=== PATIENT | female | born 1930 | race Caucasian/White ===

== ENCOUNTER 2020-10-14 14:29 | Observation (INO) | payer MEDICARE, OTHER, MEDICAID ==
[2020-10-14] MEDS ORDERED: Sodium Chloride 0.9% 2.5 ML Syringe FLUSH PRN (14:31)
[2020-10-14] MEDS ORDERED: Sodium Chloride 0.9% 10 ML Syringe FLUSH PRN (14:31)
[2020-10-14] MEDS ORDERED: Sodium Chloride 0.9% 10 ML SDV IV PRN (14:31)
--- NOTE | 2020-10-14 14:58 | EDM.PDOC ---
ED HPI GENERAL MEDICAL PROBLEM - General Chief Complaint: Neuro Symptoms/Deficits Stated Complaint: STROKE CODE Time Seen by Provider: 10/14/20 14:35 - History of Present Illness INITIAL COMMENTS - FREE TEXT/NARRATIVE: HISTORY AND PHYSICAL: History of present illness: This is an 89-year-old female with history significant for hypertension, hypercholesterolemia, dementia, hearing impairment, who presents ER today from [facility] secondary to weakness to her right side as well as slurring of her speech. Patient's DPOA is at bedside and reports that her aunt usually has extremely slurred speech and difficult to understand since childhood. She reports that at baseline she answers yes/no questions fairly well and is able to converse in that manner appropriately. She says at baseline she is able to feed herself and per EMS's report from the nurses, at baseline she is able to get around with a walker and in a wheelchair however according to [facility] nurses, starting Sunday approximately 2 days ago with her last known well. Patient thereafter was noted to have increased weakness to her right side with increased slurring in her speech. Is unclear from the ems report why patient was not sent to the ED sooner and what happened this afternoon that precipitated her coming to the ER today rather than Sunday when the symptoms were identified. Per [facility], patient has had no other complaints of fever, vomiting, diarrhea, urinary changes. Review of systems: As per history of present illness and below otherwise all systems reviewed and negative. Past medical history: As per history of present illness and as reviewed below otherwise noncontributory. Surgical history: As per history of present illness and as reviewed below otherwise noncontributory. Social history: No reported history of drug abuse. Family history: As per history of present illness and as reviewed below otherwise noncontributory. Physical exam: This patient was seen and evaluated during the 2019 SARS-CoV-2 novel coronavirus pandemic period. Community viral transmission is ongoing at time of this encounter and the emergency department is operating under pandemic response procedures. Constitutional: Patient is oriented to person, place, and time. Appears well- developed and well-nourished. No distress. Blood pressure 174/121 upon arrival by EMS HEENT: Moist mucous membranes Head: Normocephalic and atraumatic Eyes: Right eye exhibits no discharge. Left eye exhibits no discharge. No scleral icterus Neck: Normal range of motion. No tracheal deviation present. Cardiovascular: Normal rate and regular rhythm. Pulmonary: Effort normal, no respiratory distress. Abdominal: No distention Musculoskeletal: Normal range of motion Neurologic: Difficult to assess, patient not answering questions appropriately Skin: [place], warm and dry. Psychiatric: Normal mood and affect. Nursing note and vital signs have been reviewed Patient smiles appropriately in the ED when asked to. Patient does have weakness identified to her right upper and right lower extremity. Patient is able to move her left upper and left lower extremity. Difficult to obtain a full complete neuro exam secondary to the patient not following commands appropriately. Diagnostics: CBC and CMP within normal limits. CT of the head reveals no acute bleed or infarct. 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 Therapeutics: Patient's BP has significantly improved without intervention here in the ED. After patient came back from CT scan, her blood pressure was 135/65. Assessment and plan: This is an 89-year-old female with a history significant for hypertension who presents ER today initially with a markedly elevated blood pressure of 174/121 that self corrected on its own without intervention here in the ED. Patient CT scan here does not reveal any acute infarct or bleed. Patient presented to the ER today from [facility] secondary to weakness to her right upper and lower extremity with slurring in her speech since Sunday at approximately 12:01 AM. At this time, patient's niece is at her bedside and she affirms that she is a DNR. She reports that patient speech is usually difficult to understand secondary to baseline slurring her speech for quite some time. When patient returned back from CAT scan, I had the niece give her direction to move her extremities. With the niece's assistance, the patient was able to move her right and left upper and lower extremities without significant difficulty. It is unclear whether or not the patient is now moving her extremities because she is able to understand her needs better than me or whether or not this is a true improvement since the CT scan. According to [facility], the patient generally is able to assist with getting out of her wheelchair and place weight while she pivots to go to her bed. They report that since early Sunday morning, the patient has required to wear a lift in order to move her from her bed to the wheelchair which is new for her. Case discussed with Dr. Mcdermott who agrees with plan to admit to [facility]. Definitive disposition and diagnosis as appropriate pending reevaluation and review of above. - Related Data Allergies Allergy/AdvReac Type Severity Reaction Status Date / Time bee stings Allergy Other Uncoded 05/19/18 15:04 Home Meds: Home Meds Acetaminophen [Tylenol] 325 mg PO Q6H 05/19/18 [History] Bisacodyl [Biscolax] 1 dose RECTAL ASDIRECTED PRN 05/19/18 [History] Calcium Citrate/Vitamin D3 [Calcium Citrate - Vit D3 Tab] 1 cap PO DAILY 02/26 [History] Docusate Sodium [Colace] 1 cap PO BID PRN 05/19/18 [History] Magnesium Hydroxide [Milk of Magnesia] 30 ml PO DAILY 05/19/18 [History] Menthol [Biofreeze] 1 dose TOP DAILY 05/19/18 [History] Multivitamin [Multi-Vitamin Daily] 1 dose PO DAILY 05/19/18 [History] Nystatin 1 dose TOP BID PRN 05/19/18 [History] Simvastatin [Zocor] 40 mg PO BEDTIME 05/19/18 [History] polyethylene glycoL 3350 [MiraLAX] 17 gm PO BID 05/19/18 [History] traMADol HCl [Tramadol HCl] 50 mg PO Q6H PRN 05/19/18 [History] Albuterol/Ipratropium [DuoNeb 3.0-0.5 MG/3 ML] 3 ml NEB Q4HRRT 30 Days #2 box 05/26/18 [Rx] Diltiazem IR [Cardizem] 30 mg PO Q6HR 30 Days #120 tablet 05/26/18 [Rx] Metoprolol Tartrate [Lopressor] 100 mg PO Q12H 30 Days #120 05/26/18 [Rx] predniSONE 40 mg PO WITHBREAKFAST 3 Days #6 tablet 05/26/18 [Rx] Past Medical History HEENT History: Reports: Impaired Vision Respiratory History: Reports: Other (See Below) Other Respiratory History: Pneumonia Musculoskeletal History: Reports: Osteoarthritis Other Musculoskeletal History: left knee pain Other Endocrine/Metabolic History: hyperlipidemia - Infectious Disease History Infectious Disease History: Reports: Chicken Pox - Past Surgical History Other HEENT Surgeries/Procedures: pt wears eye glass Musculoskeletal Surgical History: Reports: Knee Replacement Social & Family History - Family History Family Medical History: No Pertinent Family History ED ROS GENERAL - Review of Systems Review Of Systems: See Below ED EXAM, GENERAL - Physical Exam Exam: See Below Course - Vital Signs Last Recorded V/S: Last Vital Signs Temp 98.3 F 10/14/20 14:35 Pulse 64 10/14/20 14:57 Resp 16 10/14/20 14:57 BP 123/68 10/14/20 14:57 Pulse Ox 98 10/14/20 14:57 - Orders/Labs/Meds Orders: Active Orders 24 hr Category Date Time Status Patient Status [ADT] Routine ADT 10/14/20 16:28 Active Assess Neurological Status [RC] ASDIRECTED Care 10/14/20 14:31 Active Bedrest [RC] ASDIRECTED Care 10/14/20 14:31 Active Blood Glucose Check, Bedside [RC] STAT Care 10/14/20 14:31 Active Cardiac Monitoring [RC] . DIRECTED Care 10/14/20 14:31 Active EKG Documentation Completion [RC] STAT Care 10/14/20 14:31 Active Height and Weight [RC] UPON Care 10/14/20 14:31 Active Initiate Acute Stroke Protocol [RC] STAT Care 10/14/20 14:31 Active NIH Stroke Scale [RC] ASDIRECTED Care 10/14/20 14:31 Active Nursing Bedside Swallow Screen [RC] ASDIRECTED Care 10/14/20 14:31 Active Oxygen Therapy [RC] ASDIRECTED Care 10/14/20 14:31 Active Stroke Education, General [RC] Click to Edit Care 10/14/20 14:31 Active Vital Signs [RC] Q15M Care 10/14/20 14:31 Active CORONAVIRUS COVID-19 ESPERANZA [MOLEC] Stat Lab 10/14/20 16:27 Ordered UA RFX DAVID AND CULT IF INDIC [URIN] Stat Lab 10/14/20 14:31 Ordered Sodium Chloride 0.9% [Normal Saline] Med 10/14/20 14:31 Active 10 ml IV ASDIRECTED PRN Sodium Chloride 0.9% [Saline Flush] Med 10/14/20 14:31 Active 10 ml FLUSH ASDIRECTED PRN Sodium Chloride 0.9% [Saline Flush] Med 10/14/20 14:31 Active 2.5 ml FLUSH ASDIRECTED PRN Peripheral IV Insertion Adult [OM.PC] Stat Oth 10/14/20 14:31 Ordered Peripheral IV Insertion Adult [OM.PC] Stat Ot 10/14/20 14:31 Ordered Medication Orders Sodium Chloride (Sodium Chloride 0.9% 10 Ml Syringe) 10 ml FLUSH ASDIRECTED PRN PRN Reason: Keep Vein Open Sodium Chloride (Sodium Chloride 0.9% 2.5 Ml Syringe) 2.5 ml FLUSH ASDIRECTED PRN PRN Reason: Keep Vein Open Sodium Chloride (Sodium Chloride 0.9% 10 Ml Sdv) 10 ml IV ASDIRECTED PRN PRN Reason: IV Use Labs: Laboratory Tests 10/14/20 10/14/20 10/14/20 Range/Units 14:51 15:44 15:44 WBC 9.58 (4.0-11.0) K/uL RBC 4.91 (4.30-5.90) M/uL Hgb 15.0 (12.0-16.0) g/dL Hct 46.4 H (36.0-46.0) % MCV 94.5 (80.0-98.0) fL MCH 30.5 (27.0-32.0) pg MCHC 32.3 (31.0-37.0) g/dL RDW Std Deviation 44.7 (28.0-62.0) fl RDW Coeff of Shanae 13 (11.0-15.0) % Plt Count 226 (150-400) K/uL MPV 11.70 (7.40-12.00) fL Neut % (Auto) 45.8 L (48.0-80.0) % Lymph % (Auto) 35.7 (16.0-40.0) % [place] % (Auto) 13.8 (0.0-15.0) % Eos % (Auto) 4.5 (0.0-7.0) % Baso % (Auto) 0.2 (0.0-1.5) % Neut # (Auto) 4.4 (1.4-5.7) K/uL Lymph # (Auto) 3.4 H (0.6-2.4) K/uL [place] # (Auto) 1.3 H (0.0-0.8) K/uL Eos # (Auto) 0.4 (0.0-0.7) K/uL Baso # (Auto) 0.0 (0.0-0.1) K/uL Nucleated RBC % 0.0 /100WBC Nucleated RBCs # 0 K/uL INR 1.03 APTT 20.1 (18.6-31.3) SEC Sodium 144 (136-145) mmol/L Potassium 4.1 (3.5-5.1) mmol/L Chloride 106 (98-107) mmol/L Carbon Dioxide 32.6 H (21.0-32.0) mmol/L BUN 25 H (7.0-18.0) mg/dL Creatinine 1.2 H (0.6-1.0) mg/dL Est Cr Clr Drug Dosing 25.63 mL/min Estimated GFR (MDRD) 42.4 ml/min Glucose 100 (74-106) mg/dL Calcium 9.0 (8.5-10.1) mg/dL Total Bilirubin 0.3 (0.2-1.0) mg/dL AST 24 (15-37) IU/L ALT 31 (14-63) IU/L Alkaline Phosphatase 150 H (46-116) U/L Troponin I < 0.050 (0.000-0.056) ng/mL Total Protein 7.2 (6.4-8.2) g/dL Albumin 3.5 (3.4-5.0) g/dL Globulin 3.7 (2.6-4.0) g/dL Albumin/Globulin Ratio 0.9 (0.9-1.6) TSH 3rd Generation 2.07 (0.36-3.74) uIU/mL Meds: Medications Generic Name Dose Route Start Last Admin Trade Name Freq PRN Reason Stop Dose Admin Sodium Chloride 10 ml 10/14/20 14:31 Sodium Chloride 0.9% 10 Ml Syringe FLUSH ASDIRECTED PRN Keep Vein Open Sodium Chloride 2.5 ml 10/14/20 14:31 Sodium Chloride 0.9% 2.5 Ml Syringe FLUSH ASDIRECTED PRN Keep Vein Open Sodium Chloride 10 ml 10/14/20 14:31 Sodium Chloride 0.9% 10 Ml Sdv IV ASDIRECTED PRN IV Use Departure - Departure Time of Disposition: 16:44 Disposition: Refer to Observation Condition: Good Clinical Impression: Stroke, Weakness, Slurred speech - Discharge Information Forms: ED Department Discharge Sepsis Event Note (ED) - Focused Exam Vital Signs: Vital Signs Temp Pulse Resp BP Pulse Ox 10/14/20 14:57 64 16 123/68 98 10/14/20 14:35 98.3 F 74 20 174/121 H 96 - My Orders Last 24 Hours: My Active Orders 10/14/20 14:31 Assess Neurological Status [RC] ASDIRECTED Bedrest [RC] ASDIRECTED Blood Glucose Check, Bedside [RC] STAT Cardiac Monitoring [RC] . DIRECTED EKG Documentation Completion [RC] STAT Height and Weight [RC] UPON Initiate Acute Stroke Protocol [RC] STAT NIH Stroke Scale [RC] ASDIRECTED Nursing Bedside Swallow Screen [RC] ASDIRECTED Oxygen Therapy [RC] ASDIRECTED Stroke Education, General [RC] Click to Edit Vital Signs [RC] Q15M UA RFX DAVID AND CULT IF INDIC [URIN] Stat Sodium Chloride 0.9% [Normal Saline] 10 ml IV ASDIRECTED PRN Sodium Chloride 0.9% [Saline Flush] 10 ml FLUSH ASDIRECTED PRN Sodium Chloride 0.9% [Saline Flush] 2.5 ml FLUSH ASDIRECTED PRN Peripheral IV Insertion Adult [OM.PC] Stat Peripheral IV Insertion Adult [OM.PC] Stat 10/14/20 16:27 CORONAVIRUS COVID-19 ESPERANZA [MOLEC] Stat 10/14/20 16:28 Patient Status [ADT] Routine - Assessment/Plan Last 24 Hours: My Active Orders 10/14/20 14:31 Assess Neurological Status [RC] ASDIRECTED Bedrest [RC] ASDIRECTED Blood Glucose Check, Bedside [RC] STAT Cardiac Monitoring [RC] . DIRECTED EKG Documentation Completion [RC] STAT Height and Weight [RC] UPON Initiate Acute Stroke Protocol [RC] STAT NIH Stroke Scale [RC] ASDIRECTED Nursing Bedside Swallow Screen [RC] ASDIRECTED Oxygen Therapy [RC] ASDIRECTED Stroke Education, General [RC] Click to Edit Vital Signs [RC] Q15M UA RFX DAVID AND CULT IF INDIC [URIN] Stat Sodium Chloride 0.9% [Normal Saline] 10 ml IV ASDIRECTED PRN Sodium Chloride 0.9% [Saline Flush] 10 ml FLUSH ASDIRECTED PRN Sodium Chloride 0.9% [Saline Flush] 2.5 ml FLUSH ASDIRECTED PRN Peripheral IV Insertion Adult [OM.PC] Stat Peripheral IV Insertion Adult [OM.PC] Stat 10/14/20 16:27 CORONAVIRUS COVID-19 ESPERANZA [MOLEC] Stat 10/14/20 16:28 Patient Status [ADT] Routine
--- NOTE | 2020-10-14 15:22 | CT ---
INDICATION: Stroke: TECHNIQUE: Head CT without contrast. COMPARISON: None FINDINGS: CSF spaces: Within normal limits for age. Brain parenchyma and extra-axial spaces: There are a few small lacunar infarcts in the basal ganglia bilaterally of indeterminate age. There are moderate chronic microvascular changes. No intracranial hemorrhage. No mass effect or midline shift. Skull base and calvarium: The visualized paranasal sinuses and mastoid air cells demonstrate no acute or significant findings. The visualized orbits are grossly unremarkable. No skull fractures. IMPRESSION: Few small lacunar infarcts in the basal ganglia of indeterminate age. MRI would be necessary to assess for acuity. Otherwise chronic age-related changes present. No intracranial hemorrhage. Please note that all CT scans at this facility use dose modulation, iterative reconstruction, and/or weight-based dosing when appropriate to reduce radiation dose to as low as reasonably achievable. Dictated by Donato Sanchez MD @ 10/14/2020 3:21:[address] Donato Sanchez @ Oct 14 2020 3:21PM
--- NOTE | 2020-10-14 15:54 | CR ---
INDICATION: Stroke code. TECHNIQUE: Upright portable AP image of the chest. COMPARISON: 05/21/2018. FINDINGS: Lungs low in volume, clear. No pleural effusion. Borderline cardiomegaly. Pulmonary veins normal in caliber. No significant bony abnormality. IMPRESSION: 1. Lungs low in volume, clear. 2. Large hiatal hernia. 3. Borderline cardiomegaly. Dictated by Kobe Stratton MD @ 10/14/2020 3:52:[address] Kobe Stratton @ Oct 14 2020 3:52PM
[2020-10-14 16:32] LABS: BLOOD UREA NITROGEN,BUN 25 mg/dL (7.0-18.0); CARBON DIOXIDE,CO2 32.6 mmol/L (21.0-32.0); CHLORIDE,CL 106 mmol/L (98-107); GLUCOSE RANDOM 100 mg/dL (74-106); POTASSIUM,K 4.1 mmol/L (3.5-5.1); SODIUM,NA 144 mmol/L (136-145)
[2020-10-14] MEDS ORDERED: cefTRIAXone 1 GM in Premix Bag 1 BAG IV ONE (17:45)
--- NOTE | 2020-10-14 18:25 | PCM.SN.2 ---
- Free Text/Narrative Note: Called to ER for patient IV start. 22 g angiocath left foot on 3rd attempt. Flushes easily. Secured with tegaderm and tape. Patient tolerated well.
--- NOTE | 2020-10-14 19:00 | PCM.HP.2 ---
H&P History of Present Illness - General Date of Service: 10/14/20 Admit Problem/Dx: Admission Diagnosis/Problem Admission Diagnosis/Problem Stroke of unknown etiology Source of Information: Family History Limitations: Reports: Other (Dementia/speech impediment ) - History of Present Illness Initial Comments - Free Text/Narative: Patient is a 89-year-old female resident at [facility] presenting today secondary to weakness of her right upper /lower extremity accompanied with slurring of her speech. 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 Per EMS notes/POA patient does ambulate with walker at the detention and is able to feed for herself as well. For the past 48 hours patient has been having increased weakness in her right side with increased slu rring of her speech; per ER note it is unsure why patient was not brought to the ED sooner. ED course: Initially weakness was noted in the right upper and lower extremity however there was difficulty in completing a full/thorough neuro examination secondary to patient's dementia/inability to follow commands appropriately. CBC/CMP within normal limits. CT of head did not reveal any acute bleed/infarct however there is a possibility of an old infarct in the past. BP initially was 174/121 on arrival to via EMS but subsequently improved without any interventions. After CT scan patient was able to move her right upper and lower extremities without significant difficulties; however this was achieved by having the daughter direct the patient to do these things. ER note suggests it is unclear whether this was because of not initially understanding commands or spontaneous resolution of symptoms. Bedside: Discussed concerns with daughter who is also the power of financial recruiter; mentions that speech impediment is her baseline. Patient is very friendly and does nod yes and no to questions involving pain and discomfort. Patient denies any pain/discomfort. Patient is also hard of hearing and does have mild to moderate dementia. - Related Data Allergies/Adverse Reactions: Allergies Allergy/AdvReac Type Severity Reaction Status Date / Time bee stings Allergy Other Uncoded 10/14/20 20:02 Home Medications: Home Meds traMADol HCl [Tramadol HCl] 50 mg PO Q6H PRN 05/19/18 [History] Acetaminophen [Tylenol] 325 mg PO QID 10/14/20 [History] Bisacodyl [Laxative Suppository] 1 dose .XX ASDIRECTED 10/14/20 [History] Calcium Carb, Citrate/Vit D3 [Citracal + D ER] 1 tab PO DAILY 10/14/20 [History] Docusate Sodium [Colace] 1 cap PO BID 10/14/20 [History] Magnesium Hydroxide [Milk of Magnesia] 30 ml PO ASDIRECTED PRN 10/14/20 [History] Metoprolol Tartrate [Lopressor] 100 mg PO BID 10/14/20 [History] Simvastatin 40 mg PO BEDTIME 10/14/20 [History] polyethylene glycoL 3350 [MiraLAX] 17 gm PO DAILY 10/14/20 [History] traMADol [Ultram] 50 mg PO QID 10/14/20 [History] Past Medical History HEENT History: Reports: Impaired Vision Respiratory History: Reports: Asthma, Other (See Below) Other Respiratory History: Pneumonia Musculoskeletal History: Reports: Osteoarthritis, Osteoporosis Other Musculoskeletal History: left knee pain Neurological History: Reports: Alzheimers Disease Other Endocrine/Metabolic History: hyperlipidemia - Infectious Disease History Infectious Disease History: Reports: Chicken Pox, Novel Coronavirus - Past Surgical History Other HEENT Surgeries/Procedures: pt wears eye glass Musculoskeletal Surgical History: Reports: Knee Replacement Social & Family History - Family History Family Medical History: No Pertinent Family History - Tobacco Use Tobacco Use Status *Q: Unknown Ever Used Tobacco - Caffeine Use Caffeine Use: Reports: None - Recreational Drug Use Recreational Drug Use: No H&P Review of Systems - Review of Systems: Review Of Systems: See Below Reason Not Obtained: Patient has mild-moderate demetia w. speech impedicment Free Text/Narrative: poor historian and unsure if patient understands certain questions General: Reports: Weakness, Fatigue. Denies: Fever, Chills Pulmonary: Denies: No Symptoms Cardiovascular: Denies: No Symptoms Neurological: Reports: Weakness Exam - Exam Exam: See Below - Vital Signs Vital Signs: Last Vital Signs Temp 98.3 F 10/14/20 14:35 Pulse 87 10/14/20 16:11 Resp 16 10/14/20 16:01 BP 144/87 H 10/14/20 16:11 Pulse Ox 97 10/14/20 16:11 Weight: 75.296 kg - Exam Quality Assessment: No: Supplemental Oxygen General: Alert HEENT: Conjunctiva Clear Lungs: Clear to Auscultation, Normal Respiratory Effort Cardiovascular: Regular Rate, Regular Rhythm GI/Abdominal Exam: Soft, Non-Tender Neuro Extensive - Mental Status: Alert, Normal Mood/Affect. No: Memory Intact Psychiatric: Alert - Patient Data Lab Results Last 24 hrs: Laboratory Results - last 24 hr 10/14/20 10/14/20 10/14/20 Range/Units 14:51 15:44 15:44 WBC 9.58 (4.0-11.0) K/uL RBC 4.91 (4.30-5.90) M/uL Hgb 15.0 (12.0-16.0) g/dL Hct 46.4 H (36.0-46.0) % MCV 94.5 (80.0-98.0) fL MCH 30.5 (27.0-32.0) pg MCHC 32.3 (31.0-37.0) g/dL RDW Std Deviation 44.7 (28.0-62.0) fl RDW Coeff of Shanae 13 (11.0-15.0) % Plt Count 226 (150-400) K/uL MPV 11.70 (7.40-12.00) fL Neut % (Auto) 45.8 L (48.0-80.0) % Lymph % (Auto) 35.7 (16.0-40.0) % [place] % (Auto) 13.8 (0.0-15.0) % Eos % (Auto) 4.5 (0.0-7.0) % Baso % (Auto) 0.2 (0.0-1.5) % Neut # (Auto) 4.4 (1.4-5.7) K/uL Lymph # (Auto) 3.4 H (0.6-2.4) K/uL [place] # (Auto) 1.3 H (0.0-0.8) K/uL Eos # (Auto) 0.4 (0.0-0.7) K/uL Baso # (Auto) 0.0 (0.0-0.1) K/uL Nucleated RBC % 0.0 /100WBC Nucleated RBCs # 0 K/uL INR 1.03 APTT 20.1 (18.6-31.3) SEC Lactate (0.20-2.00) mmol/L Sodium 144 (136-145) mmol/L Potassium 4.1 (3.5-5.1) mmol/L Chloride 106 (98-107) mmol/L Carbon Dioxide 32.6 H (21.0-32.0) mmol/L BUN 25 H (7.0-18.0) mg/dL Creatinine 1.2 H (0.6-1.0) mg/dL Est Cr Clr Drug Dosing 25.63 mL/min Estimated GFR (MDRD) 42.4 ml/min Glucose 100 (74-106) mg/dL Calcium 9.0 (8.5-10.1) mg/dL Total Bilirubin 0.3 (0.2-1.0) mg/dL AST 24 (15-37) IU/L ALT 31 (14-63) IU/L Alkaline Phosphatase 150 H (46-116) U/L Troponin I < 0.050 (0.000-0.056) ng/mL Total Protein 7.2 (6.4-8.2) g/dL Albumin 3.5 (3.4-5.0) g/dL Globulin 3.7 (2.6-4.0) g/dL Albumin/Globulin Ratio 0.9 (0.9-1.6) TSH 3rd Generation 2.07 (0.36-3.74) uIU/mL Urine Color Urine Appearance Urine pH (5.0-8.0) Ur Specific [place] (1.001-1.035) Urine Protein (NEGATIVE) mg/dL Urine Glucose (UA) (NEGATIVE) mg/dL Urine Ketones (NEGATIVE) mg/dL Urine Occult Blood (NEGATIVE) Urine Nitrite (NEGATIVE) Urine Bilirubin (NEGATIVE) Urine Urobilinogen (<2.0) EU/dL Ur Leukocyte Esterase (NEGATIVE) Urine RBC (0-2/HPF) Urine WBC (0-5/HPF) Ur Epithelial Cells (NONE-FEW) Calcium Oxalate Crystal (NEGATIVE) Urine Bacteria (NEGATIVE) SARS-CoV-2 RNA (ESPERANZA) (NEGATIVE) 10/14/20 10/14/20 10/14/20 Range/Units 17:02 17:03 18:19 WBC (4.0-11.0) K/uL RBC (4.30-5.90) M/uL Hgb (12.0-16.0) g/dL Hct (36.0-46.0) % MCV (80.0-98.0) fL MCH (27.0-32.0) pg MCHC (31.0-37.0) g/dL RDW Std Deviation (28.0-62.0) fl RDW Coeff of Shanae (11.0-15.0) % Plt Count (150-400) K/uL MPV (7.40-12.00) fL Neut % (Auto) (48.0-80.0) % Lymph % (Auto) (16.0-40.0) % [place] % (Auto) (0.0-15.0) % Eos % (Auto) (0.0-7.0) % Baso % (Auto) (0.0-1.5) % Neut # (Auto) (1.4-5.7) K/uL Lymph # (Auto) (0.6-2.4) K/uL [place] # (Auto) (0.0-0.8) K/uL Eos # (Auto) (0.0-0.7) K/uL Baso # (Auto) (0.0-0.1) K/uL Nucleated RBC % /100WBC Nucleated RBCs # K/uL INR APTT (18.6-31.3) SEC Lactate 1.8 (0.20-2.00) mmol/L Sodium (136-145) mmol/L Potassium (3.5-5.1) mmol/L Chloride (98-107) mmol/L Carbon Dioxide (21.0-32.0) mmol/L BUN (7.0-18.0) mg/dL Creatinine (0.6-1.0) mg/dL Est Cr Clr Drug Dosing mL/min Estimated GFR (MDRD) ml/min Glucose (74-106) mg/dL Calcium (8.5-10.1) mg/dL Total Bilirubin (0.2-1.0) mg/dL AST (15-37) IU/L ALT (14-63) IU/L Alkaline Phosphatase (46-116) U/L Troponin I (0.000-0.056) ng/mL Total Protein (6.4-8.2) g/dL Albumin (3.4-5.0) g/dL Globulin (2.6-4.0) g/dL Albumin/Globulin Ratio (0.9-1.6) TSH 3rd Generation (0.36-3.74) uIU/mL Urine Color YELLOW Urine Appearance SLT CLOUDY Urine pH 7.5 (5.0-8.0) Ur Specific [place] 1.020 (1.001-1.035) Urine Protein TRACE H (NEGATIVE) mg/dL Urine Glucose (UA) NEGATIVE (NEGATIVE) mg/dL Urine Ketones NEGATIVE (NEGATIVE) mg/dL Urine Occult Blood SMALL H (NEGATIVE) Urine Nitrite POSITIVE H (NEGATIVE) Urine Bilirubin NEGATIVE (NEGATIVE) Urine Urobilinogen 0.2 (<2.0) EU/dL Ur Leukocyte Esterase LARGE H (NEGATIVE) Urine RBC 0-3 (0-2/HPF) Urine WBC 80-90 (0-5/HPF) Ur Epithelial Cells RARE (NONE-FEW) Calcium Oxalate Crystal FEW (NEGATIVE) Urine Bacteria 3+ H (NEGATIVE) SARS-CoV-2 RNA (ESPERANZA) NEGATIVE (NEGATIVE) Result Diagrams: 10/14/20 15:44 10/14/20 15:44 Joseph Results Last 24 hrs: Microbiology 10/14/20 18:19 Anaerobic Blood Culture - Final Blood - Venous Sepsis Event Note - Evaluation Sepsis Screening Result: No Definite Risk - Focused Exam Vital Signs: Vital Signs Temp Pulse Resp BP Pulse Ox 10/14/20 16:11 87 144/87 H 97 10/14/20 16:01 74 16 140/77 94 L 10/14/20 15:27 70 17 123/93 H 93 L 10/14/20 14:57 64 16 123/68 98 10/14/20 14:35 98.3 F 74 20 174/121 H 96 - Problem List (1) UTI (urinary tract infection) SNOMED Code(s): 08005138 ICD Code: N39.0 - URINARY TRACT INFECTION, SITE NOT SPECIFIED Status: Acute Current Visit: Yes (2) Slurred speech SNOMED Code(s): 307844005 ICD Code: R47.81 - SLURRED SPEECH Status: Acute Current Visit: Yes (3) Weakness SNOMED Code(s): 35986758 ICD Code: R53.1 - WEAKNESS Status: Acute Current Visit: Yes Problem List Initiated/Reviewed/Updated: Yes Orders Last 24hrs: Active Orders 24 hr Category Date Time Status Patient Status [ADT] Routine ADT 10/14/20 16:28 Active Assess Neurological Status [RC] ASDIRECTED Care 10/14/20 14:31 Active Bedrest [RC] ASDIRECTED Care 10/14/20 14:31 Active Blood Glucose Check, Bedside [RC] STAT Care 10/14/20 14:31 Active Cardiac Monitoring [RC] . DIRECTED Care 10/14/20 14:31 Active EKG Documentation Completion [RC] STAT Care 10/14/20 14:31 Active Height and Weight [RC] UPON Care 10/14/20 14:31 Active NIH Stroke Scale [RC] ASDIRECTED Care 10/14/20 14:31 Active Nursing Bedside Swallow Screen [RC] ASDIRECTED Care 10/14/20 14:31 Active Oxygen Therapy [RC] ASDIRECTED Care 10/14/20 14:31 Active Oxygen Therapy [RC] PRN Care 10/14/20 18:56 Ordered Stroke Education, General [RC] Click to Edit Care 10/14/20 14:31 Active Up With Assistance [RC] ASDIRECTED Care 10/14/20 18:56 Ordered VTE/DVT Education [RC] PER UNIT ROUTINE Care 10/14/20 18:56 Ordered Vital Signs [RC] Q15M Care 10/14/20 14:31 Active Vital Signs [RC] Q4H Care 10/14/20 18:56 Ordered CULTURE BLOOD [BC] Stat Lab 10/14/20 18:19 Results CULTURE URINE [RM] Stat Lab 10/14/20 17:03 Received Heparin Sodium Med 10/14/20 19:00 Ordered 5,000 units SUBCUT Q8H Sodium Chloride 0.9% [Normal Saline] Med 10/14/20 14:31 Active 10 ml IV ASDIRECTED PRN Sodium Chloride 0.9% [Saline Flush] Med 10/14/20 14:31 Active 10 ml FLUSH ASDIRECTED PRN Sodium Chloride 0.9% [Saline Flush] Med 10/14/20 14:31 Active 2.5 ml FLUSH ASDIRECTED PRN Blood Culture x2 Reflex Set [OM.PC] Stat Oth 10/14/20 17:45 Ordered Peripheral IV Insertion Adult [OM.PC] Stat Oth 10/14/20 14:31 Ordered Peripheral IV Insertion Adult [OM.PC] Stat Oth 10/14/20 14:31 Ordered Resuscitation Status Routine Resus Stat 10/14/20 18:56 Ordered Medication Orders Sodium Chloride (Sodium Chloride 0.9% 10 Ml Syringe) 10 ml FLUSH ASDIRECTED PRN PRN Reason: Keep Vein Open Sodium Chloride (Sodium Chloride 0.9% 2.5 Ml Syringe) 2.5 ml FLUSH ASDIRECTED PRN PRN Reason: Keep Vein Open Sodium Chloride (Sodium Chloride 0.9% 10 Ml Sdv) 10 ml IV ASDIRECTED PRN PRN Reason: IV Use Assessment/Plan Comment:: Assessment: 1. Slurred speech/weakness possibly secondary to TIA versus stroke 2. Urinary tract infection 3. Acute kidney injury 4. Past medical history: Hypertension, hypercholesterolemia, dementia, hearing impairment Plan Admit to Observation. DNR/DNI. I's and O's per routine, vitals per routine DVT prophylaxis: Heparin 5000 GI prophylax pantoprazole 40. 1. Slurred speech/weakness with concerns for TIA stroke: CT head negative for any acute processes. MRI without contrast ordered secondary to indeterminate ages of multiple lacunar infarcts UA positive however for nitrites/leukocyte esterase. Discussed with niece/Nieves who is POA for patient: The patient more or less is at her baseline but also endorses that she has not seen her aunt for some time due to the COVID restrictions at [facility]. Discussed plan of care with POA and she agrees with moving forward with MRI and monitoring overnight for response to antibiotics. Urine cultures ordered and pending. We will continue ceftriaxone and adjust medications accordingly. Patient seen at bedside and is in no acute distress and smiling when spoken to. Head CT: Few lacunar infarcts in basal ganglia of indeterminate age. Chronic microvascular changes. No intracranial hemorrhage. No mass-effect and or midline shift. Chest x-ray: Lungs low in volume however clear. Large hiatal hernia. Borderline cardiomegaly COVID negative 2. Acute kidney injury: Recheck BMP in a.m.; marginal increase in creatinine; baseline creatinine of 1.1 Nursing bedside swallow study ordered; tolerating p.o. Will encourage p.o. fluid intake. 3. Hypertension: Hold metoprolol for now for permissive hypertension in setting of possible TIA versus stroke 4. Past medical history: Hypercholesterolemia: Restart simvastatin Lipid panel added on to current labs.
[2020-10-14] MEDS: Heparin Sodium 5,000 Units/ML Vial SUBCUT SCH (19:54)
[2020-10-14] MEDS ORDERED: traMADol 50 MG Tab PO PRN (19:57)
[2020-10-15] MEDS: Simvastatin 40 MG Tab PO SCH ×2 (02:39→21:33)
[2020-10-15] MEDS: Heparin Sodium 5,000 Units/ML Vial SUBCUT SCH ×3 (02:47→18:14)
[2020-10-15] MEDS: traMADol 50 MG Tab PO SCH ×2 (02:49→06:39)
[2020-10-15 05:57] LABS: CARBON DIOXIDE,CO2 28.5 mmol/L (21.0-32.0); POTASSIUM,K 3.8 mmol/L (3.5-5.1)
[2020-10-15] MEDS ORDERED: Sodium Chloride 0.9% 1,000 ML IV ONE (09:13)
[2020-10-15] MEDS ORDERED: Acetaminophen 325 MG Supp RECTAL PRN (11:38)
[2020-10-15] MEDS ORDERED: LORazepam 2 MG/ML SDV IVPUSH ONE (13:03)
--- NOTE | 2020-10-15 13:41 | MR ---
INDICATION: Slurred speech. TECHNIQUE: Brain MRI without contrast. The following sequences were obtained: Sagittal T1 weighted sequence. DWI and ADC mapping sequences. Axial FLAIR and NATHAN T2 weighted sequences. Axial SWI sequence. COMPARISON: Head CT from 10/14/2020. FINDINGS: No evidence of acute ischemia. No evidence of acute or chronic intracranial blood products. Moderate generalized parenchymal volume loss. Patchy FLAIR hyperintensities within the deep/periventricular supratentorial white matter and brainstem, typical for chronic microvascular ischemic changes. Tiny chronic lacunar infarct left superior basal ganglia. No mass effect or herniation. No hydrocephalus or extra-axial collections. The pituitary gland, parasellar structures and optic chiasm are normal. All the major intracranial vascular structures demonstrate normal flow-related signal. The orbital contents are normal. No calvarial or skull base marrow signal abnormality. Dependent fluid right sphenoid sinus. No extracranial soft tissue findings. IMPRESSION: 1. No acute infarction or other acute intracranial pathology. 2. Moderate burden of chronic microvascular ischemic changes within the supratentorial white matter and brainstem. Tiny chronic lacunar infarct left superior basal ganglia. 3. Moderate generalized parenchymal volume loss. Dictated by Elkin Arevalo MD @ 10/15/2020 1:39:[address] Elkin Arevalo @ Oct 15 2020 1:39PM
--- NOTE | 2020-10-15 15:20 | PCM.PN ---
- General Info Date of Service: 10/15/20 Subjective Update: Bedside: tired but opened eyes; no acute distress noted - Review of Systems General: Denies: Fever Pulmonary: Reports: No Symptoms Gastrointestinal: Reports: No Symptoms - Patient Data Vitals - Most Recent: Last Vital Signs Temp 98.3 F 10/15/20 08:49 Pulse 88 10/15/20 08:49 Resp 16 10/15/20 08:49 BP 121/56 L 10/15/20 08:49 Pulse Ox 88 L 10/15/20 08:49 Weight - Most Recent: 75.296 kg Lab Results Last 24 Hours: Laboratory Results - last 24 hr 10/14/20 10/14/20 10/14/20 Range/Units 14:51 15:44 15:44 WBC 9.58 (4.0-11.0) K/uL RBC 4.91 (4.30-5.90) M/uL Hgb 15.0 (12.0-16.0) g/dL Hct 46.4 H (36.0-46.0) % MCV 94.5 (80.0-98.0) fL MCH 30.5 (27.0-32.0) pg MCHC 32.3 (31.0-37.0) g/dL RDW Std Deviation 44.7 (28.0-62.0) fl RDW Coeff of Shanae 13 (11.0-15.0) % Plt Count 226 (150-400) K/uL MPV 11.70 (7.40-12.00) fL Neut % (Auto) 45.8 L (48.0-80.0) % Lymph % (Auto) 35.7 (16.0-40.0) % [place] % (Auto) 13.8 (0.0-15.0) % Eos % (Auto) 4.5 (0.0-7.0) % Baso % (Auto) 0.2 (0.0-1.5) % Neut # (Auto) 4.4 (1.4-5.7) K/uL Lymph # (Auto) 3.4 H (0.6-2.4) K/uL [place] # (Auto) 1.3 H (0.0-0.8) K/uL Eos # (Auto) 0.4 (0.0-0.7) K/uL Baso # (Auto) 0.0 (0.0-0.1) K/uL Nucleated RBC % 0.0 /100WBC Nucleated RBCs # 0 K/uL INR 1.03 APTT 20.1 (18.6-31.3) SEC Lactate (0.20-2.00) mmol/L Sodium 144 (136-145) mmol/L Potassium 4.1 (3.5-5.1) mmol/L Chloride 106 (98-107) mmol/L Carbon Dioxide 32.6 H (21.0-32.0) mmol/L BUN 25 H (7.0-18.0) mg/dL Creatinine 1.2 H (0.6-1.0) mg/dL Est Cr Clr Drug Dosing 25.63 mL/min Estimated GFR (MDRD) 42.4 ml/min Glucose 100 (74-106) mg/dL POC Glucose (70-99) mg/dL Calcium 9.0 (8.5-10.1) mg/dL Total Bilirubin 0.3 (0.2-1.0) mg/dL AST 24 (15-37) IU/L ALT 31 (14-63) IU/L Alkaline Phosphatase 150 H (46-116) U/L Troponin I < 0.050 (0.000-0.056) ng/mL Total Protein 7.2 (6.4-8.2) g/dL Albumin 3.5 (3.4-5.0) g/dL Globulin 3.7 (2.6-4.0) g/dL Albumin/Globulin Ratio 0.9 (0.9-1.6) Triglycerides (0-200) mg/dL Cholesterol (50-200) mg/dL LDL Cholesterol, Calc (60-180) mg/dL VLDL Cholesterol (5-55) mg/dL HDL Cholesterol (40-60) mg/dL Cholesterol/HDL Ratio (3.3-6.0) TSH 3rd Generation 2.07 (0.36-3.74) uIU/mL Urine Color Urine Appearance Urine pH (5.0-8.0) Ur Specific [place] (1.001-1.035) Urine Protein (NEGATIVE) mg/dL Urine Glucose (UA) (NEGATIVE) mg/dL Urine Ketones (NEGATIVE) mg/dL Urine Occult Blood (NEGATIVE) Urine Nitrite (NEGATIVE) Urine Bilirubin (NEGATIVE) Urine Urobilinogen (<2.0) EU/dL Ur Leukocyte Esterase (NEGATIVE) Urine RBC (0-2/HPF) Urine WBC (0-5/HPF) Ur Epithelial Cells (NONE-FEW) Calcium Oxalate Crystal (NEGATIVE) Urine Bacteria (NEGATIVE) SARS-CoV-2 RNA (ESPERANZA) (NEGATIVE) 10/14/20 10/14/20 10/14/20 Range/Units 17:02 17:03 18:19 WBC (4.0-11.0) K/uL RBC (4.30-5.90) M/uL Hgb (12.0-16.0) g/dL Hct (36.0-46.0) % MCV (80.0-98.0) fL MCH (27.0-32.0) pg MCHC (31.0-37.0) g/dL RDW Std Deviation (28.0-62.0) fl RDW Coeff of Shanae (11.0-15.0) % Plt Count (150-400) K/uL MPV (7.40-12.00) fL Neut % (Auto) (48.0-80.0) % Lymph % (Auto) (16.0-40.0) % [place] % (Auto) (0.0-15.0) % Eos % (Auto) (0.0-7.0) % Baso % (Auto) (0.0-1.5) % Neut # (Auto) (1.4-5.7) K/uL Lymph # (Auto) (0.6-2.4) K/uL [place] # (Auto) (0.0-0.8) K/uL Eos # (Auto) (0.0-0.7) K/uL Baso # (Auto) (0.0-0.1) K/uL Nucleated RBC % /100WBC Nucleated RBCs # K/uL INR APTT (18.6-31.3) SEC Lactate 1.8 (0.20-2.00) mmol/L Sodium (136-145) mmol/L Potassium (3.5-5.1) mmol/L Chloride (98-107) mmol/L Carbon Dioxide (21.0-32.0) mmol/L BUN (7.0-18.0) mg/dL Creatinine (0.6-1.0) mg/dL Est Cr Clr Drug Dosing mL/min Estimated GFR (MDRD) ml/min Glucose (74-106) mg/dL POC Glucose (70-99) mg/dL Calcium (8.5-10.1) mg/dL Total Bilirubin (0.2-1.0) mg/dL AST (15-37) IU/L ALT (14-63) IU/L Alkaline Phosphatase (46-116) U/L Troponin I (0.000-0.056) ng/mL Total Protein (6.4-8.2) g/dL Albumin (3.4-5.0) g/dL Globulin (2.6-4.0) g/dL Albumin/Globulin Ratio (0.9-1.6) Triglycerides (0-200) mg/dL Cholesterol (50-200) mg/dL LDL Cholesterol, Calc (60-180) mg/dL VLDL Cholesterol (5-55) mg/dL HDL Cholesterol (40-60) mg/dL Cholesterol/HDL Ratio (3.3-6.0) TSH 3rd Generation (0.36-3.74) uIU/mL Urine Color YELLOW Urine Appearance SLT CLOUDY Urine pH 7.5 (5.0-8.0) Ur Specific [place] 1.020 (1.001-1.035) Urine Protein TRACE H (NEGATIVE) mg/dL Urine Glucose (UA) NEGATIVE (NEGATIVE) mg/dL Urine Ketones NEGATIVE (NEGATIVE) mg/dL Urine Occult Blood SMALL H (NEGATIVE) Urine Nitrite POSITIVE H (NEGATIVE) Urine Bilirubin NEGATIVE (NEGATIVE) Urine Urobilinogen 0.2 (<2.0) EU/dL Ur Leukocyte Esterase LARGE H (NEGATIVE) Urine RBC 0-3 (0-2/HPF) Urine WBC 80-90 (0-5/HPF) Ur Epithelial Cells RARE (NONE-FEW) Calcium Oxalate Crystal FEW (NEGATIVE) Urine Bacteria 3+ H (NEGATIVE) SARS-CoV-2 RNA (ESPERANZA) NEGATIVE (NEGATIVE) 10/14/20 10/15/20 10/15/20 Range/Units 18:19 05:10 05:10 WBC 11.64 H (4.0-11.0) K/uL RBC 4.39 (4.30-5.90) M/uL Hgb 13.5 (12.0-16.0) g/dL Hct 41.1 (36.0-46.0) % MCV 93.6 (80.0-98.0) fL MCH 30.8 (27.0-32.0) pg MCHC 32.8 (31.0-37.0) g/dL RDW Std Deviation 45.0 (28.0-62.0) fl RDW Coeff of Shanae 13 (11.0-15.0) % Plt Count 226 (150-400) K/uL MPV 12.10 H (7.40-12.00) fL Neut % (Auto) 41.7 L (48.0-80.0) % Lymph % (Auto) 43.6 H (16.0-40.0) % [place] % (Auto) 11.7 (0.0-15.0) % Eos % (Auto) 2.7 (0.0-7.0) % Baso % (Auto) 0.3 (0.0-1.5) % Neut # (Auto) 4.9 (1.4-5.7) K/uL Lymph # (Auto) 5.1 H (0.6-2.4) K/uL [place] # (Auto) 1.4 H (0.0-0.8) K/uL Eos # (Auto) 0.3 (0.0-0.7) K/uL Baso # (Auto) 0.0 (0.0-0.1) K/uL Nucleated RBC % 0.0 /100WBC Nucleated RBCs # 0 K/uL INR APTT (18.6-31.3) SEC Lactate (0.20-2.00) mmol/L Sodium 144 (136-145) mmol/L Potassium 3.8 (3.5-5.1) mmol/L Chloride 108 H (98-107) mmol/L Carbon Dioxide 28.5 (21.0-32.0) mmol/L BUN 27 H (7.0-18.0) mg/dL Creatinine 1.4 H (0.6-1.0) mg/dL Est Cr Clr Drug Dosing 19.95 mL/min Estimated GFR (MDRD) 35.5 ml/min Glucose 135 H (74-106) mg/dL POC Glucose (70-99) mg/dL Calcium 8.7 (8.5-10.1) mg/dL Total Bilirubin (0.2-1.0) mg/dL AST (15-37) IU/L ALT (14-63) IU/L Alkaline Phosphatase (46-116) U/L Troponin I (0.000-0.056) ng/mL Total Protein (6.4-8.2) g/dL Albumin (3.4-5.0) g/dL Globulin (2.6-4.0) g/dL Albumin/Globulin Ratio (0.9-1.6) Triglycerides 137 (0-200) mg/dL Cholesterol 122 (50-200) mg/dL LDL Cholesterol, Calc 52 L (60-180) mg/dL VLDL Cholesterol 27 (5-55) mg/dL HDL Cholesterol 43 (40-60) mg/dL Cholesterol/HDL Ratio 2.8 L (3.3-6.0) TSH 3rd Generation (0.36-3.74) uIU/mL Urine Color Urine Appearance Urine pH (5.0-8.0) Ur Specific [place] (1.001-1.035) Urine Protein (NEGATIVE) mg/dL Urine Glucose (UA) (NEGATIVE) mg/dL Urine Ketones (NEGATIVE) mg/dL Urine Occult Blood (NEGATIVE) Urine Nitrite (NEGATIVE) Urine Bilirubin (NEGATIVE) Urine Urobilinogen (<2.0) EU/dL Ur Leukocyte Esterase (NEGATIVE) Urine RBC (0-2/HPF) Urine WBC (0-5/HPF) Ur Epithelial Cells (NONE-FEW) Calcium Oxalate Crystal (NEGATIVE) Urine Bacteria (NEGATIVE) SARS-CoV-2 RNA (ESPERANZA) (NEGATIVE) 10/15/20 Range/Units 13:30 WBC (4.0-11.0) K/uL RBC (4.30-5.90) M/uL Hgb (12.0-16.0) g/dL Hct (36.0-46.0) % MCV (80.0-98.0) fL MCH (27.0-32.0) pg MCHC (31.0-37.0) g/dL RDW Std Deviation (28.0-62.0) fl RDW Coeff of Shanae (11.0-15.0) % Plt Count (150-400) K/uL MPV (7.40-12.00) fL Neut % (Auto) (48.0-80.0) % Lymph % (Auto) (16.0-40.0) % [place] % (Auto) (0.0-15.0) % Eos % (Auto) (0.0-7.0) % Baso % (Auto) (0.0-1.5) % Neut # (Auto) (1.4-5.7) K/uL Lymph # (Auto) (0.6-2.4) K/uL [place] # (Auto) (0.0-0.8) K/uL Eos # (Auto) (0.0-0.7) K/uL Baso # (Auto) (0.0-0.1) K/uL Nucleated RBC % /100WBC Nucleated RBCs # K/uL INR APTT (18.6-31.3) SEC Lactate (0.20-2.00) mmol/L Sodium (136-145) mmol/L Potassium (3.5-5.1) mmol/L Chloride (98-107) mmol/L Carbon Dioxide (21.0-32.0) mmol/L BUN (7.0-18.0) mg/dL Creatinine (0.6-1.0) mg/dL Est Cr Clr Drug Dosing mL/min Estimated GFR (MDRD) ml/min Glucose (74-106) mg/dL POC Glucose 93 (70-99) mg/dL Calcium (8.5-10.1) mg/dL Total Bilirubin (0.2-1.0) mg/dL AST (15-37) IU/L ALT (14-63) IU/L Alkaline Phosphatase (46-116) U/L Troponin I (0.000-0.056) ng/mL Total Protein (6.4-8.2) g/dL Albumin (3.4-5.0) g/dL Globulin (2.6-4.0) g/dL Albumin/Globulin Ratio (0.9-1.6) Triglycerides (0-200) mg/dL Cholesterol (50-200) mg/dL LDL Cholesterol, Calc (60-180) mg/dL VLDL Cholesterol (5-55) mg/dL HDL Cholesterol (40-60) mg/dL Cholesterol/HDL Ratio (3.3-6.0) TSH 3rd Generation (0.36-3.74) uIU/mL Urine Color Urine Appearance Urine pH (5.0-8.0) Ur Specific [place] (1.001-1.035) Urine Protein (NEGATIVE) mg/dL Urine Glucose (UA) (NEGATIVE) mg/dL Urine Ketones (NEGATIVE) mg/dL Urine Occult Blood (NEGATIVE) Urine Nitrite (NEGATIVE) Urine Bilirubin (NEGATIVE) Urine Urobilinogen (<2.0) EU/dL Ur Leukocyte Esterase (NEGATIVE) Urine RBC (0-2/HPF) Urine WBC (0-5/HPF) Ur Epithelial Cells (NONE-FEW) Calcium Oxalate Crystal (NEGATIVE) Urine Bacteria (NEGATIVE) SARS-CoV-2 RNA (ESPERANZA) (NEGATIVE) Joseph Results Last 24 Hours: Microbiology 10/14/20 18:19 Anaerobic Blood Culture - Final Blood - Venous Med Orders - Current: Current Medications Acetaminophen (Acetaminophen 325 Mg Supp) 325 mg RECTAL Q4H PRN PRN Reason: Pain Heparin Sodium (Porcine) (Heparin Sodium 5,000 Units/Ml Vial) 5,000 units SUBCUT Q8H ON LICENSE OF [facility] Last Admin: 10/15/20 13:24 Dose: 5,000 units Documented by: Ceftriaxone Sodium/Dextrose 1 (gm/ Premix) 50 mls @ 100 mls/hr IV Q24H ON LICENSE OF [facility] Sodium Chloride (Normal Saline) 1,000 mls @ 75 mls/hr IV CONTINUOUS ONE Stop: 10/15/20 22:32 Last Admin: 10/15/20 09:35 Dose: 75 mls/hr Documented by: Simvastatin (Simvastatin 40 Mg Tab) 40 mg PO BEDTIME ON LICENSE OF [facility] Last Admin: 10/15/20 02:39 Dose: Not Given Documented by: Sodium Chloride (Sodium Chloride 0.9% 10 Ml Syringe) 10 ml FLUSH ASDIRECTED PRN PRN Reason: Keep Vein Open Sodium Chloride (Sodium Chloride 0.9% 2.5 Ml Syringe) 2.5 ml FLUSH ASDIRECTED PRN PRN Reason: Keep Vein Open Sodium Chloride (Sodium Chloride 0.9% 10 Ml Sdv) 10 ml IV ASDIRECTED PRN PRN Reason: IV Use Discontinued Medications Ceftriaxone Sodium/Dextrose 1 (gm/ Premix) 50 mls @ 100 mls/hr IV ONETIME ONE Stop: 10/14/20 18:14 Last Admin: 10/14/20 18:38 Dose: 100 mls/hr Documented by: Lorazepam (Lorazepam 2 Mg/Ml Sdv) 0.25 mg IVPUSH ONETIME ONE Stop: 10/15/20 13:04 Last Admin: 10/15/20 13:24 Dose: Not Given Documented by: Tramadol HCl (Tramadol 50 Mg Tab) 50 mg PO QID ALON Last Admin: 10/15/20 06:39 Dose: Not Given Documented by: Tramadol HCl (Tramadol 50 Mg Tab) 50 mg PO Q6H PRN PRN Reason: Pain - Exam Quality Assessment: No: Supplemental Oxygen General: No Acute Distress Lungs: Clear to Auscultation GI/Abdominal Exam: Soft Neurological: No New Focal Deficit - Patient Data Lab Results Last 24 hrs: Laboratory Results - last 24 hr 10/14/20 10/14/20 10/14/20 Range/Units 14:51 15:44 15:44 WBC 9.58 (4.0-11.0) K/uL RBC 4.91 (4.30-5.90) M/uL Hgb 15.0 (12.0-16.0) g/dL Hct 46.4 H (36.0-46.0) % MCV 94.5 (80.0-98.0) fL MCH 30.5 (27.0-32.0) pg MCHC 32.3 (31.0-37.0) g/dL RDW Std Deviation 44.7 (28.0-62.0) fl RDW Coeff of Shanae 13 (11.0-15.0) % Plt Count 226 (150-400) K/uL MPV 11.70 (7.40-12.00) fL Neut % (Auto) 45.8 L (48.0-80.0) % Lymph % (Auto) 35.7 (16.0-40.0) % [place] % (Auto) 13.8 (0.0-15.0) % Eos % (Auto) 4.5 (0.0-7.0) % Baso % (Auto) 0.2 (0.0-1.5) % Neut # (Auto) 4.4 (1.4-5.7) K/uL Lymph # (Auto) 3.4 H (0.6-2.4) K/uL [place] # (Auto) 1.3 H (0.0-0.8) K/uL Eos # (Auto) 0.4 (0.0-0.7) K/uL Baso # (Auto) 0.0 (0.0-0.1) K/uL Nucleated RBC % 0.0 /100WBC Nucleated RBCs # 0 K/uL INR 1.03 APTT 20.1 (18.6-31.3) SEC Lactate (0.20-2.00) mmol/L Sodium 144 (136-145) mmol/L Potassium 4.1 (3.5-5.1) mmol/L Chloride 106 (98-107) mmol/L Carbon Dioxide 32.6 H (21.0-32.0) mmol/L BUN 25 H (7.0-18.0) mg/dL Creatinine 1.2 H (0.6-1.0) mg/dL Est Cr Clr Drug Dosing 25.63 mL/min Estimated GFR (MDRD) 42.4 ml/min Glucose 100 (74-106) mg/dL POC Glucose (70-99) mg/dL Calcium 9.0 (8.5-10.1) mg/dL Total Bilirubin 0.3 (0.2-1.0) mg/dL AST 24 (15-37) IU/L ALT 31 (14-63) IU/L Alkaline Phosphatase 150 H (46-116) U/L Troponin I < 0.050 (0.000-0.056) ng/mL Total Protein 7.2 (6.4-8.2) g/dL Albumin 3.5 (3.4-5.0) g/dL Globulin 3.7 (2.6-4.0) g/dL Albumin/Globulin Ratio 0.9 (0.9-1.6) Triglycerides (0-200) mg/dL Cholesterol (50-200) mg/dL LDL Cholesterol, Calc (60-180) mg/dL VLDL Cholesterol (5-55) mg/dL HDL Cholesterol (40-60) mg/dL Cholesterol/HDL Ratio (3.3-6.0) TSH 3rd Generation 2.07 (0.36-3.74) uIU/mL Urine Color Urine Appearance Urine pH (5.0-8.0) Ur Specific [place] (1.001-1.035) Urine Protein (NEGATIVE) mg/dL Urine Glucose (UA) (NEGATIVE) mg/dL Urine Ketones (NEGATIVE) mg/dL Urine Occult Blood (NEGATIVE) Urine Nitrite (NEGATIVE) Urine Bilirubin (NEGATIVE) Urine Urobilinogen (<2.0) EU/dL Ur Leukocyte Esterase (NEGATIVE) Urine RBC (0-2/HPF) Urine WBC (0-5/HPF) Ur Epithelial Cells (NONE-FEW) Calcium Oxalate Crystal (NEGATIVE) Urine Bacteria (NEGATIVE) SARS-CoV-2 RNA (ESPERANZA) (NEGATIVE) 10/14/20 10/14/20 10/14/20 Range/Units 17:02 17:03 18:19 WBC (4.0-11.0) K/uL RBC (4.30-5.90) M/uL Hgb (12.0-16.0) g/dL Hct (36.0-46.0) % MCV (80.0-98.0) fL MCH (27.0-32.0) pg MCHC (31.0-37.0) g/dL RDW Std Deviation (28.0-62.0) fl RDW Coeff of Shanae (11.0-15.0) % Plt Count (150-400) K/uL MPV (7.40-12.00) fL Neut % (Auto) (48.0-80.0) % Lymph % (Auto) (16.0-40.0) % [place] % (Auto) (0.0-15.0) % Eos % (Auto) (0.0-7.0) % Baso % (Auto) (0.0-1.5) % Neut # (Auto) (1.4-5.7) K/uL Lymph # (Auto) (0.6-2.4) K/uL [place] # (Auto) (0.0-0.8) K/uL Eos # (Auto) (0.0-0.7) K/uL Baso # (Auto) (0.0-0.1) K/uL Nucleated RBC % /100WBC Nucleated RBCs # K/uL INR APTT (18.6-31.3) SEC Lactate 1.8 (0.20-2.00) mmol/L Sodium (136-145) mmol/L Potassium (3.5-5.1) mmol/L Chloride (98-107) mmol/L Carbon Dioxide (21.0-32.0) mmol/L BUN (7.0-18.0) mg/dL Creatinine (0.6-1.0) mg/dL Est Cr Clr Drug Dosing mL/min Estimated GFR (MDRD) ml/min Glucose (74-106) mg/dL POC Glucose (70-99) mg/dL Calcium (8.5-10.1) mg/dL Total Bilirubin (0.2-1.0) mg/dL AST (15-37) IU/L ALT (14-63) IU/L Alkaline Phosphatase (46-116) U/L Troponin I (0.000-0.056) ng/mL Total Protein (6.4-8.2) g/dL Albumin (3.4-5.0) g/dL Globulin (2.6-4.0) g/dL Albumin/Globulin Ratio (0.9-1.6) Triglycerides (0-200) mg/dL Cholesterol (50-200) mg/dL LDL Cholesterol, Calc (60-180) mg/dL VLDL Cholesterol (5-55) mg/dL HDL Cholesterol (40-60) mg/dL Cholesterol/HDL Ratio (3.3-6.0) TSH 3rd Generation (0.36-3.74) uIU/mL Urine Color YELLOW Urine Appearance SLT CLOUDY Urine pH 7.5 (5.0-8.0) Ur Specific [place] 1.020 (1.001-1.035) Urine Protein TRACE H (NEGATIVE) mg/dL Urine Glucose (UA) NEGATIVE (NEGATIVE) mg/dL Urine Ketones NEGATIVE (NEGATIVE) mg/dL Urine Occult Blood SMALL H (NEGATIVE) Urine Nitrite POSITIVE H (NEGATIVE) Urine Bilirubin NEGATIVE (NEGATIVE) Urine Urobilinogen 0.2 (<2.0) EU/dL Ur Leukocyte Esterase LARGE H (NEGATIVE) Urine RBC 0-3 (0-2/HPF) Urine WBC 80-90 (0-5/HPF) Ur Epithelial Cells RARE (NONE-FEW) Calcium Oxalate Crystal FEW (NEGATIVE) Urine Bacteria 3+ H (NEGATIVE) SARS-CoV-2 RNA (ESPERANZA) NEGATIVE (NEGATIVE) 10/14/20 10/15/20 10/15/20 Range/Units 18:19 05:10 05:10 WBC 11.64 H (4.0-11.0) K/uL RBC 4.39 (4.30-5.90) M/uL Hgb 13.5 (12.0-16.0) g/dL Hct 41.1 (36.0-46.0) % MCV 93.6 (80.0-98.0) fL MCH 30.8 (27.0-32.0) pg MCHC 32.8 (31.0-37.0) g/dL RDW Std Deviation 45.0 (28.0-62.0) fl RDW Coeff of Shanae 13 (11.0-15.0) % Plt Count 226 (150-400) K/uL MPV 12.10 H (7.40-12.00) fL Neut % (Auto) 41.7 L (48.0-80.0) % Lymph % (Auto) 43.6 H (16.0-40.0) % [place] % (Auto) 11.7 (0.0-15.0) % Eos % (Auto) 2.7 (0.0-7.0) % Baso % (Auto) 0.3 (0.0-1.5) % Neut # (Auto) 4.9 (1.4-5.7) K/uL Lymph # (Auto) 5.1 H (0.6-2.4) K/uL [place] # (Auto) 1.4 H (0.0-0.8) K/uL Eos # (Auto) 0.3 (0.0-0.7) K/uL Baso # (Auto) 0.0 (0.0-0.1) K/uL Nucleated RBC % 0.0 /100WBC Nucleated RBCs # 0 K/uL INR APTT (18.6-31.3) SEC Lactate (0.20-2.00) mmol/L Sodium 144 (136-145) mmol/L Potassium 3.8 (3.5-5.1) mmol/L Chloride 108 H (98-107) mmol/L Carbon Dioxide 28.5 (21.0-32.0) mmol/L BUN 27 H (7.0-18.0) mg/dL Creatinine 1.4 H (0.6-1.0) mg/dL Est Cr Clr Drug Dosing 19.95 mL/min Estimated GFR (MDRD) 35.5 ml/min Glucose 135 H (74-106) mg/dL POC Glucose (70-99) mg/dL Calcium 8.7 (8.5-10.1) mg/dL Total Bilirubin (0.2-1.0) mg/dL AST (15-37) IU/L ALT (14-63) IU/L Alkaline Phosphatase (46-116) U/L Troponin I (0.000-0.056) ng/mL Total Protein (6.4-8.2) g/dL Albumin (3.4-5.0) g/dL Globulin (2.6-4.0) g/dL Albumin/Globulin Ratio (0.9-1.6) Triglycerides 137 (0-200) mg/dL Cholesterol 122 (50-200) mg/dL LDL Cholesterol, Calc 52 L (60-180) mg/dL VLDL Cholesterol 27 (5-55) mg/dL HDL Cholesterol 43 (40-60) mg/dL Cholesterol/HDL Ratio 2.8 L (3.3-6.0) TSH 3rd Generation (0.36-3.74) uIU/mL Urine Color Urine Appearance Urine pH (5.0-8.0) Ur Specific [place] (1.001-1.035) Urine Protein (NEGATIVE) mg/dL Urine Glucose (UA) (NEGATIVE) mg/dL Urine Ketones (NEGATIVE) mg/dL Urine Occult Blood (NEGATIVE) Urine Nitrite (NEGATIVE) Urine Bilirubin (NEGATIVE) Urine Urobilinogen (<2.0) EU/dL Ur Leukocyte Esterase (NEGATIVE) Urine RBC (0-2/HPF) Urine WBC (0-5/HPF) Ur Epithelial Cells (NONE-FEW) Calcium Oxalate Crystal (NEGATIVE) Urine Bacteria (NEGATIVE) SARS-CoV-2 RNA (ESPERANZA) (NEGATIVE) 10/15/20 Range/Units 13:30 WBC (4.0-11.0) K/uL RBC (4.30-5.90) M/uL Hgb (12.0-16.0) g/dL Hct (36.0-46.0) % MCV (80.0-98.0) fL MCH (27.0-32.0) pg MCHC (31.0-37.0) g/dL RDW Std Deviation (28.0-62.0) fl RDW Coeff of Shanae (11.0-15.0) % Plt Count (150-400) K/uL MPV (7.40-12.00) fL Neut % (Auto) (48.0-80.0) % Lymph % (Auto) (16.0-40.0) % [place] % (Auto) (0.0-15.0) % Eos % (Auto) (0.0-7.0) % Baso % (Auto) (0.0-1.5) % Neut # (Auto) (1.4-5.7) K/uL Lymph # (Auto) (0.6-2.4) K/uL Slope # (Auto) (0.0-0.8) K/uL Eos # (Auto) (0.0-0.7) K/uL Baso # (Auto) (0.0-0.1) K/uL Nucleated RBC % /100WBC Nucleated RBCs # K/uL INR APTT (18.6-31.3) SEC Lactate (0.20-2.00) mmol/L Sodium (136-145) mmol/L Potassium (3.5-5.1) mmol/L Chloride (98-107) mmol/L Carbon Dioxide (21.0-32.0) mmol/L BUN (7.0-18.0) mg/dL Creatinine (0.6-1.0) mg/dL Est Cr Clr Drug Dosing mL/min Estimated GFR (MDRD) ml/min Glucose (74-106) mg/dL POC Glucose 93 (70-99) mg/dL Calcium (8.5-10.1) mg/dL Total Bilirubin (0.2-1.0) mg/dL AST (15-37) IU/L ALT (14-63) IU/L Alkaline Phosphatase (46-116) U/L Troponin I (0.000-0.056) ng/mL Total Protein (6.4-8.2) g/dL Albumin (3.4-5.0) g/dL Globulin (2.6-4.0) g/dL Albumin/Globulin Ratio (0.9-1.6) Triglycerides (0-200) mg/dL Cholesterol (50-200) mg/dL LDL Cholesterol, Calc (60-180) mg/dL VLDL Cholesterol (5-55) mg/dL HDL Cholesterol (40-60) mg/dL Cholesterol/HDL Ratio (3.3-6.0) TSH 3rd Generation (0.36-3.74) uIU/mL Urine Color Urine Appearance Urine pH (5.0-8.0) Ur Specific [place] (1.001-1.035) Urine Protein (NEGATIVE) mg/dL Urine Glucose (UA) (NEGATIVE) mg/dL Urine Ketones (NEGATIVE) mg/dL Urine Occult Blood (NEGATIVE) Urine Nitrite (NEGATIVE) Urine Bilirubin (NEGATIVE) Urine Urobilinogen (<2.0) EU/dL Ur Leukocyte Esterase (NEGATIVE) Urine RBC (0-2/HPF) Urine WBC (0-5/HPF) Ur Epithelial Cells (NONE-FEW) Calcium Oxalate Crystal (NEGATIVE) Urine Bacteria (NEGATIVE) SARS-CoV-2 RNA (ESPERANZA) (NEGATIVE) Result Diagrams: 10/15/20 05:10 10/15/20 05:10 Joseph Results Last 24 hrs: Microbiology 10/14/20 18:19 Anaerobic Blood Culture - Final Blood - Venous Sepsis Event Note - Evaluation Sepsis Screening Result: No Definite Risk - Focused Exam Vital Signs: Vital Signs Temp Pulse Resp BP Pulse Ox 10/15/20 08:49 98.3 F 88 16 121/56 L 88 L 10/15/20 05:17 99.7 F 87 20 130/66 91 L - Problem List & Annotations (1) UTI (urinary tract infection) SNOMED Code(s): 18650703 Code(s): N39.0 - URINARY TRACT INFECTION, SITE NOT SPECIFIED Status: Acute Current Visit: Yes (2) Slurred speech SNOMED Code(s): 849966462 Code(s): R47.81 - SLURRED SPEECH Status: Acute Current Visit: Yes (3) Weakness SNOMED Code(s): 22059163 Code(s): R53.1 - WEAKNESS Status: Acute Current Visit: Yes - Problem List Review Problem List Initiated/Reviewed/Updated: Yes - My Orders Last 24 Hours: My Active Orders 10/14/20 18:56 Oxygen Therapy [RC] PRN Up With Assistance [RC] ASDIRECTED VTE/DVT Education [RC] PER UNIT ROUTINE Vital Signs [RC] Q4H Resuscitation Status Routine 10/14/20 19:00 Heparin Sodium 5,000 units SUBCUT Q8H 10/14/20 21:00 Simvastatin [Zocor] 40 mg PO BEDTIME 10/15/20 09:13 Sodium Chloride 0.9% [Normal Saline] 1,000 ml IV CONTINUOUS 10/15/20 09:38 Consult to Physical Therapy [PT Evaluation and Treatment] [CONS] Routine 10/15/20 11:38 Acetaminophen [Tylenol] 325 mg RECTAL Q4H PRN 10/15/20 20:00 cefTRIAXone [Rocephin in Dextrose,Iso-Osm 1 GM/50 ML] 1 gm Premix Bag 1 bag IV Q24H 10/16/20 05:11 BMP [BASIC METABOLIC PANEL,BMP] [CHEM] AM CBC WITH AUTO DIFF [HEME] AM 10/17/20 05:11 BMP [BASIC METABOLIC PANEL,BMP] [CHEM] AM CBC WITH AUTO DIFF [HEME] AM - Plan Plan:: Assessment: 1. Slurred speech/weakness possibly secondary to TIA versus stroke 2. Urinary tract infection 3. Acute kidney injury 4. Past medical history: Hypertension, hypercholesterolemia, dementia, hearing impairment Plan 1. Slurred speech/weakness with concerns for TIA stroke: CT head negative for any acute processes. MRI without contrast: No evidence of acute ischemia or acute/chronic intracranial blood products. no acute findings; moderate burden of chronic microvascular ischemic changes within the supratentorial white matter and brainstem. Tiny chronic lacunar infarct left superior basal ganglia Moderate generalized parenchymal volume loss UA positive for nitrites/leukocyte esterase.: cultures pending continue CTX . Chest x-ray: Lungs low in volume however clear. Large hiatal hernia. Borderline cardiomegaly COVID negative 2. Acute kidney injury: start IV NS 75 cc/hr; recheck in AM 3. Hypertension: Hold metoprolol for now for permissive hypertension in setting of possible TIA versus stroke 4. Past medical history: Hypercholesterolemia: Restart simvastatin.
[2020-10-15] MEDS: cefTRIAXone 1 GM in Premix Bag 1 BAG IV SCH (20:00)
[2020-10-16] MEDS: Heparin Sodium 5,000 Units/ML Vial SUBCUT SCH ×3 (03:00→18:47)
[2020-10-16 06:35] LABS: CARBON DIOXIDE,CO2 26.1 mmol/L (21.0-32.0); POTASSIUM,K 3.9 mmol/L (3.5-5.1)
[2020-10-16] MEDS: Nystatin Topical Powder 15 GM Bottle TOP PRN (13:47)
--- NOTE | 2020-10-16 17:08 | PCM.PN ---
<Garrett Garcia - Last Filed: 10/16/20 17:10> - General Info Date of Service: 10/16/20 Subjective Update: bedside: more alert this AM. family at bedside endorses she is tired but at her baseline. pt did not appear to be in any distress - Review of Systems General: Denies: Fever Cardiovascular: Reports: No Symptoms Gastrointestinal: Reports: No Symptoms Neurological: Reports: Pre-Existing Deficit Psychiatric: Denies: Confusion, Anxiety - Patient Data Vitals - Most Recent: Last Vital Signs Temp 37.4 F L 10/16/20 12:00 Pulse 94 10/16/20 12:00 Resp 16 10/16/20 12:00 BP 166/78 H 10/16/20 12:00 Pulse Ox 94 L 10/16/20 12:00 Weight - Most Recent: 75.296 kg Lab Results Last 24 Hours: Laboratory Results - last 24 hr 10/15/20 10/16/20 10/16/20 Range/Units 19:07 05:20 05:20 WBC 9.93 (4.0-11.0) K/uL RBC 4.14 L (4.30-5.90) M/uL Hgb 12.7 (12.0-16.0) g/dL Hct 39.6 (36.0-46.0) % MCV 95.7 (80.0-98.0) fL MCH 30.7 (27.0-32.0) pg MCHC 32.1 (31.0-37.0) g/dL RDW Std Deviation 46.5 (28.0-62.0) fl RDW Coeff of Shanae 13 (11.0-15.0) % Plt Count 209 (150-400) K/uL MPV 12.10 H (7.40-12.00) fL Neut % (Auto) 33.9 L (48.0-80.0) % Lymph % (Auto) 47.1 H (16.0-40.0) % [place] % (Auto) 15.1 H (0.0-15.0) % Eos % (Auto) 3.6 (0.0-7.0) % Baso % (Auto) 0.3 (0.0-1.5) % Neut # (Auto) 3.4 (1.4-5.7) K/uL Lymph # (Auto) 4.7 H (0.6-2.4) K/uL [place] # (Auto) 1.5 H (0.0-0.8) K/uL Eos # (Auto) 0.4 (0.0-0.7) K/uL Baso # (Auto) 0.0 (0.0-0.1) K/uL Nucleated RBC % 0.0 /100WBC Nucleated RBCs # 0 K/uL Sodium 148 H (136-145) mmol/L Potassium 3.9 (3.5-5.1) mmol/L Chloride 110 H (98-107) mmol/L Carbon Dioxide 26.1 (21.0-32.0) mmol/L BUN 28 H (7.0-18.0) mg/dL Creatinine 1.2 H (0.6-1.0) mg/dL Est Cr Clr Drug Dosing 23.28 mL/min Estimated GFR (MDRD) 42.4 ml/min Glucose 114 H (74-106) mg/dL POC Glucose 89 (70-99) mg/dL Calcium 8.3 L (8.5-10.1) mg/dL 10/16/20 Range/Units 12:22 WBC (4.0-11.0) K/uL RBC (4.30-5.90) M/uL Hgb (12.0-16.0) g/dL Hct (36.0-46.0) % MCV (80.0-98.0) fL MCH (27.0-32.0) pg MCHC (31.0-37.0) g/dL RDW Std Deviation (28.0-62.0) fl RDW Coeff of Shanae (11.0-15.0) % Plt Count (150-400) K/uL MPV (7.40-12.00) fL Neut % (Auto) (48.0-80.0) % Lymph % (Auto) (16.0-40.0) % [place] % (Auto) (0.0-15.0) % Eos % (Auto) (0.0-7.0) % Baso % (Auto) (0.0-1.5) % Neut # (Auto) (1.4-5.7) K/uL Lymph # (Auto) (0.6-2.4) K/uL [place] # (Auto) (0.0-0.8) K/uL Eos # (Auto) (0.0-0.7) K/uL Baso # (Auto) (0.0-0.1) K/uL Nucleated RBC % /100WBC Nucleated RBCs # K/uL Sodium (136-145) mmol/L Potassium (3.5-5.1) mmol/L Chloride (98-107) mmol/L Carbon Dioxide (21.0-32.0) mmol/L BUN (7.0-18.0) mg/dL Creatinine (0.6-1.0) mg/dL Est Cr Clr Drug Dosing mL/min Estimated GFR (MDRD) ml/min Glucose (74-106) mg/dL POC Glucose 105 H (70-99) mg/dL Calcium (8.5-10.1) mg/dL Joseph Results Last 24 Hours: Microbiology 10/14/20 17:03 Urine Culture - Final Urine, Catheterized Proteus Mirabilis Normal Urogenital Bessie 10/14/20 18:19 Aerobic Blood Culture - Preliminary Blood - Venous NO GROWTH AFTER 1 DAY Anaerobic Blood Culture - Final Med Orders - Current: Current Medications Acetaminophen (Acetaminophen 325 Mg Supp) 325 mg RECTAL Q4H PRN PRN Reason: Pain Last Admin: 10/16/20 02:41 Dose: 325 mg Documented by: Heparin Sodium (Porcine) (Heparin Sodium 5,000 Units/Ml Vial) 5,000 units SUBC UT Q8H [facility] Last Admin: 10/16/20 13:46 Dose: 5,000 units Documented by: Ceftriaxone Sodium/Dextrose 1 (gm/ Premix) 50 mls @ 100 mls/hr IV Q24H [facility] Last Admin: 10/15/20 20:00 Dose: 100 mls/hr Documented by: Nystatin (Nystatin Topical Powder 15 Gm Bottle) 0 gm TOP QID PRN PRN Reason: rashes/redness Last Admin: 10/16/20 13:47 Dose: 1 applic Documented by: Simvastatin (Simvastatin 40 Mg Tab) 40 mg PO BEDTIME [facility] Last Admin: 10/15/20 21:33 Dose: Not Given Documented by: Sodium Chloride (Sodium Chloride 0.9% 10 Ml Syringe) 10 ml FLUSH ASDIRECTED PRN PRN Reason: Keep Vein Open Sodium Chloride (Sodium Chloride 0.9% 2.5 Ml Syringe) 2.5 ml FLUSH ASDIRECTED PRN PRN Reason: Keep Vein Open Sodium Chloride (Sodium Chloride 0.9% 10 Ml Sdv) 10 ml IV ASDIRECTED PRN PRN Reason: IV Use Discontinued Medications Ceftriaxone Sodium/Dextrose 1 (gm/ Premix) 50 mls @ 100 mls/hr IV ONETIME ONE Stop: 10/14/20 18:14 Last Admin: 10/14/20 18:38 Dose: 100 mls/hr Documented by: Sodium Chloride (Normal Saline) 1,000 mls @ 75 mls/hr IV CONTINUOUS ONE Stop: 10/15/20 22:32 Last Admin: 10/15/20 09:35 Dose: 75 mls/hr Documented by: Lorazepam (Lorazepam 2 Mg/Ml Sdv) 0.25 mg IVPUSH ONETIME ONE Stop: 10/15/20 13:04 Last Admin: 10/15/20 13:24 Dose: Not Given Documented by: Tramadol HCl (Tramadol 50 Mg Tab) 50 mg PO QID ALON Last Admin: 10/15/20 06:39 Dose: Not Given Documented by: Tramadol HCl (Tramadol 50 Mg Tab) 50 mg PO Q6H PRN PRN Reason: Pain - Exam Quality Assessment: No: Supplemental Oxygen General: Alert, Cooperative, No Acute Distress Lungs: Clear to Auscultation Cardiovascular: Regular Rhythm GI/Abdominal Exam: Soft, Non-Tender Extremities: Normal Inspection Psy/Mental Status: Alert - Patient Data Lab Results Last 24 hrs: Laboratory Results - last 24 hr 10/15/20 10/16/20 10/16/20 Range/Units 19:07 05:20 05:20 WBC 9.93 (4.0-11.0) K/uL RBC 4.14 L (4.30-5.90) M/uL Hgb 12.7 (12.0-16.0) g/dL Hct 39.6 (36.0-46.0) % MCV 95.7 (80.0-98.0) fL MCH 30.7 (27.0-32.0) pg MCHC 32.1 (31.0-37.0) g/dL RDW Std Deviation 46.5 (28.0-62.0) fl RDW Coeff of Shanae 13 (11.0-15.0) % Plt Count 209 (150-400) K/uL MPV 12.10 H (7.40-12.00) fL Neut % (Auto) 33.9 L (48.0-80.0) % Lymph % (Auto) 47.1 H (16.0-40.0) % [place] % (Auto) 15.1 H (0.0-15.0) % Eos % (Auto) 3.6 (0.0-7.0) % Baso % (Auto) 0.3 (0.0-1.5) % Neut # (Auto) 3.4 (1.4-5.7) K/uL Lymph # (Auto) 4.7 H (0.6-2.4) K/uL [place] # (Auto) 1.5 H (0.0-0.8) K/uL Eos # (Auto) 0.4 (0.0-0.7) K/uL Baso # (Auto) 0.0 (0.0-0.1) K/uL Nucleated RBC % 0.0 /100WBC Nucleated RBCs # 0 K/uL Sodium 148 H (136-145) mmol/L Potassium 3.9 (3.5-5.1) mmol/L Chloride 110 H (98-107) mmol/L Carbon Dioxide 26.1 (21.0-32.0) mmol/L BUN 28 H (7.0-18.0) mg/dL Creatinine 1.2 H (0.6-1.0) mg/dL Est Cr Clr Drug Dosing 23.28 mL/min Estimated GFR (MDRD) 42.4 ml/min Glucose 114 H (74-106) mg/dL POC Glucose 89 (70-99) mg/dL Calcium 8.3 L (8.5-10.1) mg/dL 10/16/20 Range/Units 12:22 WBC (4.0-11.0) K/uL RBC (4.30-5.90) M/uL Hgb (12.0-16.0) g/dL Hct (36.0-46.0) % MCV (80.0-98.0) fL MCH (27.0-32.0) pg MCHC (31.0-37.0) g/dL RDW Std Deviation (28.0-62.0) fl RDW Coeff of Shanae (11.0-15.0) % Plt Count (150-400) K/uL MPV (7.40-12.00) fL Neut % (Auto) (48.0-80.0) % Lymph % (Auto) (16.0-40.0) % [place] % (Auto) (0.0-15.0) % Eos % (Auto) (0.0-7.0) % Baso % (Auto) (0.0-1.5) % Neut # (Auto) (1.4-5.7) K/uL Lymph # (Auto) (0.6-2.4) K/uL [place] # (Auto) (0.0-0.8) K/uL Eos # (Auto) (0.0-0.7) K/uL Baso # (Auto) (0.0-0.1) K/uL Nucleated RBC % /100WBC Nucleated RBCs # K/uL Sodium (136-145) mmol/L Potassium (3.5-5.1) mmol/L Chloride (98-107) mmol/L Carbon Dioxide (21.0-32.0) mmol/L BUN (7.0-18.0) mg/dL Creatinine (0.6-1.0) mg/dL Est Cr Clr Drug Dosing mL/min Estimated GFR (MDRD) ml/min Glucose (74-106) mg/dL POC Glucose 105 H (70-99) mg/dL Calcium (8.5-10.1) mg/dL Result Diagrams: 10/16/20 05:20 10/16/20 05:20 Joseph Results Last 24 hrs: Microbiology 10/14/20 17:03 Urine Culture - Final Urine, Catheterized Proteus Mirabilis Normal Urogenital Bessie 10/14/20 18:19 Aerobic Blood Culture - Preliminary Blood - Venous NO GROWTH AFTER 1 DAY Anaerobic Blood Culture - Final Sepsis Event Note - Evaluation Sepsis Screening Result: No Definite Risk - Focused Exam Vital Signs: Vital Signs Temp Pulse Resp BP Pulse Ox 10/16/20 12:00 37.4 F L 94 16 166/78 H 94 L 10/16/20 08:00 99.9 F 93 16 157/92 H - Problem List & Annotations (1) UTI (urinary tract infection) SNOMED Code(s): 04632465 Code(s): N39.0 - URINARY TRACT INFECTION, SITE NOT SPECIFIED Status: Acute Current Visit: Yes (2) Slurred speech SNOMED Code(s): 128743310 Code(s): R47.81 - SLURRED SPEECH Status: Acute Current Visit: Yes (3) Weakness SNOMED Code(s): 43917622 Code(s): R53.1 - WEAKNESS Status: Acute Current Visit: Yes - Problem List Review Problem List Initiated/Reviewed/Updated: Yes - My Orders Last 24 Hours: My Active Orders 10/15/20 20:00 cefTRIAXone [Rocephin in Dextrose,Iso-Osm 1 GM/50 ML] 1 gm Premix Bag 1 bag IV Q24H 10/16/20 11:43 Ready for Discharge [RC] PER UNIT ROUTINE 10/16/20 Dinner Clear Liquid Diet [DIET] 10/17/20 05:11 BMP [BASIC METABOLIC PANEL,BMP] [CHEM] AM CBC WITH AUTO DIFF [HEME] AM - Plan Plan:: Assessment: 1. Slurred speech/weakness possibly secondary to TIA versus stroke 2. Urinary tract infection secondary to proteus mirabilis 3. Acute kidney injury:improving 4. Past medical history: Hypertension, hypercholesterolemia, dementia, hearing impairment Plan 1. Slurred speech/weakness with concerns for TIA stroke: CT head negative for any acute processes. MRI without contrast: No evidence of acute ischemia or acute/chronic intracranial blood products. no acute findings; moderate burden of chronic microvascular ischemic changes within the supratentorial white matter and brainstem. 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 will be continued on this during hospitilization, Would like to see pt tolerate PO and have BM prior to discharge. . Chest x-ray: Lungs low in volume however clear. Large hiatal hernia. Borderline cardiomegaly COVID negative 2. Acute kidney injury: start IV NS 75 cc/hr; continue; RADHA improving 3. Hypertension: Hold metoprolol for now for permissive hypertension in setting of possible TIA versus stroke 4. Past medical history: Hypercholesterolemia: Restart simvastatin. Discussed w. family/DPOA regarding goals of care; in agreement to keep patient comfortable w.o any aggressive measures/treatment. Will make note of this but family will also make NH aware of these wishes as well. <Iraj Lassiter - Last Filed: 10/16/20 18:25> - General Info Subjective Update: I have seen and evaluated the patient. I have discussed findings and treatment plan with resident. I agree with the assessment and plan in the following note. - Patient Data Vitals - Most Recent: Last Vital Signs Temp 2.5 C L 10/16/20 16:00 Pulse 113 H 10/16/20 16:00 Resp 17 10/16/20 16:00 BP 148/73 H 10/16/20 16:00 Pulse Ox 95 10/16/20 16:00 Lab Results Last 24 Hours: Laboratory Results - last 24 hr 10/15/20 10/16/20 10/16/20 Range/Units 19:07 05:20 05:20 WBC 9.93 (4.0-11.0) K/uL RBC 4.14 L (4.30-5.90) M/uL Hgb 12.7 (12.0-16.0) g/dL Hct 39.6 (36.0-46.0) % MCV 95.7 (80.0-98.0) fL MCH 30.7 (27.0-32.0) pg MCHC 32.1 (31.0-37.0) g/dL RDW Std Deviation 46.5 (28.0-62.0) fl RDW Coeff of Shanae 13 (11.0-15.0) % Plt Count 209 (150-400) K/uL MPV 12.10 H (7.40-12.00) fL Neut % (Auto) 33.9 L (48.0-80.0) % Lymph % (Auto) 47.1 H (16.0-40.0) % [place] % (Auto) 15.1 H (0.0-15.0) % Eos % (Auto) 3.6 (0.0-7.0) % Baso % (Auto) 0.3 (0.0-1.5) % Neut # (Auto) 3.4 (1.4-5.7) K/uL Lymph # (Auto) 4.7 H (0.6-2.4) K/uL [place] # (Auto) 1.5 H (0.0-0.8) K/uL Eos # (Auto) 0.4 (0.0-0.7) K/uL Baso # (Auto) 0.0 (0.0-0.1) K/uL Nucleated RBC % 0.0 /100WBC Nucleated RBCs # 0 K/uL Sodium 148 H (136-145) mmol/L Potassium 3.9 (3.5-5.1) mmol/L Chloride 110 H (98-107) mmol/L Carbon Dioxide 26.1 (21.0-32.0) mmol/L BUN 28 H (7.0-18.0) mg/dL Creatinine 1.2 H (0.6-1.0) mg/dL Est Cr Clr Drug Dosing 23.28 mL/min Estimated GFR (MDRD) 42.4 ml/min Glucose 114 H (74-106) mg/dL POC Glucose 89 (70-99) mg/dL Calcium 8.3 L (8.5-10.1) mg/dL 10/16/20 Range/Units 12:22 WBC (4.0-11.0) K/uL RBC (4.30-5.90) M/uL Hgb (12.0-16.0) g/dL Hct (36.0-46.0) % MCV (80.0-98.0) fL MCH (27.0-32.0) pg MCHC (31.0-37.0) g/dL RDW Std Deviation (28.0-62.0) fl RDW Coeff of Shanae (11.0-15.0) % Plt Count (150-400) K/uL MPV (7.40-12.00) fL Neut % (Auto) (48.0-80.0) % Lymph % (Auto) (16.0-40.0) % [place] % (Auto) (0.0-15.0) % Eos % (Auto) (0.0-7.0) % Baso % (Auto) (0.0-1.5) % Neut # (Auto) (1.4-5.7) K/uL Lymph # (Auto) (0.6-2.4) K/uL [place] # (Auto) (0.0-0.8) K/uL Eos # (Auto) (0.0-0.7) K/uL Baso # (Auto) (0.0-0.1) K/uL Nucleated RBC % /100WBC Nucleated RBCs # K/uL Sodium (136-145) mmol/L Potassium (3.5-5.1) mmol/L Chloride (98-107) mmol/L Carbon Dioxide (21.0-32.0) mmol/L BUN (7.0-18.0) mg/dL Creatinine (0.6-1.0) mg/dL Est Cr Clr Drug Dosing mL/min Estimated GFR (MDRD) ml/min Glucose (74-106) mg/dL POC Glucose 105 H (70-99) mg/dL Calcium (8.5-10.1) mg/dL Joseph Results Last 24 Hours: Microbiology 10/14/20 18:19 Aerobic Blood Culture - Preliminary Blood - Venous NO GROWTH AFTER 2 DAYS Anaerobic Blood Culture - Final 10/14/20 17:03 Urine Culture - Final Urine, Catheterized Proteus Mirabilis Normal Urogenital Bessie Med Orders - Current: Current Medications Acetaminophen (Acetaminophen 325 Mg Supp) 325 mg RECTAL Q4H PRN PRN Reason: Pain Last Admin: 10/16/20 02:41 Dose: 325 mg Documented by: Heparin Sodium (Porcine) (Heparin Sodium 5,000 Units/Ml Vial) 5,000 units SUBCUT Q8H [facility] Last Admin: 10/16/20 13:46 Dose: 5,000 units Documented by: Ceftriaxone Sodium/Dextrose 1 (gm/ Premix) 50 mls @ 100 mls/hr IV Q24H [facility] Last Admin: 10/15/20 20:00 Dose: 100 mls/hr Documented by: Nystatin (Nystatin Topical Powder 15 Gm Bottle) 0 gm TOP QID PRN PRN Reason: rashes/redness Last Admin: 10/16/20 13:47 Dose: 1 applic Documented by: Simvastatin (Simvastatin 40 Mg Tab) 40 mg PO BEDTIME [facility] Last Admin: 10/15/20 21:33 Dose: Not Given Documented by: Sodium Chloride (Sodium Chloride 0.9% 10 Ml Syringe) 10 ml FLUSH ASDIRECTED PRN PRN Reason: Keep Vein Open Sodium Chloride (Sodium Chloride 0.9% 2.5 Ml Syringe) 2.5 ml FLUSH ASDIRECTED PRN PRN Reason: Keep Vein Open Sodium Chloride (Sodium Chloride 0.9% 10 Ml Sdv) 10 ml IV ASDIRECTED PRN PRN Reason: IV Use Discontinued Medications Ceftriaxone Sodium/Dextrose 1 (gm/ Premix) 50 mls @ 100 mls/hr IV ONETIME ONE Stop: 10/14/20 18:14 Last Admin: 10/14/20 18:38 Dose: 100 mls/hr Documented by: Sodium Chloride (Normal Saline) 1,000 mls @ 75 mls/hr IV CONTINUOUS ONE Stop: 10/15/20 22:32 Last Admin: 10/15/20 09:35 Dose: 75 mls/hr Documented by: Lorazepam (Lorazepam 2 Mg/Ml Sdv) 0.25 mg IVPUSH ONETIME ONE Stop: 10/15/20 13:04 Last Admin: 10/15/20 13:24 Dose: Not Given Documented by: Tramadol HCl (Tramadol 50 Mg Tab) 50 mg PO QID ALON Last Admin: 10/15/20 06:39 Dose: Not Given Documented by: Tramadol HCl (Tramadol 50 Mg Tab) 50 mg PO Q6H PRN PRN Reason: Pain - Patient Data Lab Results Last 24 hrs: Laboratory Results - last 24 hr 10/15/20 10/16/20 10/16/20 Range/Units 19:07 05:20 05:20 WBC 9.93 (4.0-11.0) K/uL RBC 4.14 L (4.30-5.90) M/uL Hgb 12.7 (12.0-16.0) g/dL Hct 39.6 (36.0-46.0) % MCV 95.7 (80.0-98.0) fL MCH 30.7 (27.0-32.0) pg MCHC 32.1 (31.0-37.0) g/dL RDW Std Deviation 46.5 (28.0-62.0) fl RDW Coeff of Shanae 13 (11.0-15.0) % Plt Count 209 (150-400) K/uL MPV 12.10 H (7.40-12.00) fL Neut % (Auto) 33.9 L (48.0-80.0) % Lymph % (Auto) 47.1 H (16.0-40.0) % [place] % (Auto) 15.1 H (0.0-15.0) % Eos % (Auto) 3.6 (0.0-7.0) % Baso % (Auto) 0.3 (0.0-1.5) % Neut # (Auto) 3.4 (1.4-5.7) K/uL Lymph # (Auto) 4.7 H (0.6-2.4) K/uL [place] # (Auto) 1.5 H (0.0-0.8) K/uL Eos # (Auto) 0.4 (0.0-0.7) K/uL Baso # (Auto) 0.0 (0.0-0.1) K/uL Nucleated RBC % 0.0 /100WBC Nucleated RBCs # 0 K/uL Sodium 148 H (136-145) mmol/L Potassium 3.9 (3.5-5.1) mmol/L Chloride 110 H (98-107) mmol/L Carbon Dioxide 26.1 (21.0-32.0) mmol/L BUN 28 H (7.0-18.0) mg/dL Creatinine 1.2 H (0.6-1.0) mg/dL Est Cr Clr Drug Dosing 23.28 mL/min Estimated GFR (MDRD) 42.4 ml/min Glucose 114 H (74-106) mg/dL POC Glucose 89 (70-99) mg/dL Calcium 8.3 L (8.5-10.1) mg/dL 10/16/20 Range/Units 12:22 WBC (4.0-11.0) K/uL RBC (4.30-5.90) M/uL Hgb (12.0-16.0) g/dL Hct (36.0-46.0) % MCV (80.0-98.0) fL MCH (27.0-32.0) pg MCHC (31.0-37.0) g/dL RDW Std Deviation (28.0-62.0) fl RDW Coeff of Shanae (11.0-15.0) % Plt Count (150-400) K/uL MPV (7.40-12.00) fL Neut % (Auto) (48.0-80.0) % Lymph % (Auto) (16.0-40.0) % [place] % (Auto) (0.0-15.0) % Eos % (Auto) (0.0-7.0) % Baso % (Auto) (0.0-1.5) % Neut # (Auto) (1.4-5.7) K/uL Lymph # (Auto) (0.6-2.4) K/uL [place] # (Auto) (0.0-0.8) K/uL Eos # (Auto) (0.0-0.7) K/uL Baso # (Auto) (0.0-0.1) K/uL Nucleated RBC % /100WBC Nucleated RBCs # K/uL Sodium (136-145) mmol/L Potassium (3.5-5.1) mmol/L Chloride (98-107) mmol/L Carbon Dioxide (21.0-32.0) mmol/L BUN (7.0-18.0) mg/dL Creatinine (0.6-1.0) mg/dL Est Cr Clr Drug Dosing mL/min Estimated GFR (MDRD) ml/min Glucose (74-106) mg/dL POC Glucose 105 H (70-99) mg/dL Calcium (8.5-10.1) mg/dL Result Diagrams: 10/16/20 05:20 10/16/20 05:20 Joseph Results Last 24 hrs: Microbiology 10/14/20 18:19 Aerobic Blood Culture - Preliminary Blood - Venous NO GROWTH AFTER 2 DAYS Anaerobic Blood Culture - Final 10/14/20 17:03 Urine Culture - Final Urine, Catheterized Proteus Mirabilis Normal Urogenital Bessie Sepsis Event Note - Focused Exam Vital Signs: Vital Signs Temp Pulse Resp BP Pulse Ox 10/16/20 16:00 2.5 C L 113 H 17 148/73 H 95 10/16/20 12:00 3.0 C L 94 16 166/78 H 94 L 10/16/20 08:00 37.7 C 93 16 157/92 H
[2020-10-16] MEDS: cefTRIAXone 1 GM in Premix Bag 1 BAG IV SCH (20:17)
[2020-10-16] MEDS: Simvastatin 40 MG Tab PO SCH (20:20)
[2020-10-16] MEDS ORDERED: Diltiazem 25 MG/5 ML SDV ONE (21:28)
[2020-10-16] MEDS ORDERED: Diltiazem 25 MG/5 ML SDV IVPUSH ONE (21:31)
[2020-10-16] MEDS ORDERED: Diltiazem 100 MG in Sodium Chloride 0.9% 100 ML IV SCH (23:00)
--- NOTE | 2020-10-16 23:12 | PCM.SN.2 ---
- Free Text/Narrative Note: patient developed Afib RVR, IV Cardizem was pushed twice with improvement of HR to 140s but patient was still in afib RVR so Cardizem gtt had to be started and patient was transferred to icu. Unsure of etilogy of New onset afib, MARIYA-VASC high, will start Lovenox 40 BID and discuss with family about senior care anticoa gulation and further work up as they were in the process of discussing facility designer goals of care, Watch for bleeding
[2020-10-17] MEDS ORDERED: Amiodarone 150 MG in Dextrose 5% in Water 100 ML IV ONE ×2 (01:22)
--- NOTE | 2020-10-17 01:27 | PN ---
THC Physician - Brief Progress MsndLARCLNSIQ41/09/2021 01:14[facility] Rizo Demetrius [place], DONNA - RADAMES [facility] [facility] - ARRON BERMANDate of Service 10/17/2020 01:14HPI/Event s of Note Case discussed with RN. 89 year old F admitted from [place] with UTI and on abx, course complic ated by afib RVR. Treated with cardizem drip with minimal response.120-140s 122/97Recs include: h emodynamic monitoring, switch to amio bolus and drip for improved HR control, AC per primary service, wean off cardizem, supplemental O2 PRN, GI and DVT prophylaxis, abx, follow cultures, replace lytes as needed, glycemic monitoring, pain control, neuro checks.Interventions Minor-Communication with o ther healthcare providers and/or family 0 1:26
[2020-10-17 01:49] LABS: CARBON DIOXIDE,CO2 24.1 mmol/L (21.0-32.0); POTASSIUM,K 3.4 mmol/L (3.5-5.1)
[2020-10-17] MEDS ORDERED: Amiodarone In Dextrose,Iso-Osm 150 MG in Premix Bag 1 BAG IV ONE ×2 (01:53)
[2020-10-17] MEDS ORDERED: Esmolol 2,500 MG in Sodium Chloride 0.9% 250 ML IV SCH (03:15)
--- NOTE | 2020-10-17 03:31 | PN ---
THC Physician - Brief Progress [id number]/09/2021 02:59[facility] Demetrius templeton, DONNA - RADAMES ([facility] [facility] - ARRON BERMANDate of Service 10/17/2020 02:59HPI/Event s of Note DIscussed with RN: Pt tachycardic to 150s despite amio.BP stable and pt remains asymptomati c.Plan: trial of esmolol for HR control.Interventions Minor-Communication with other healthcare provi ders and/or family
[2020-10-17] MEDS ORDERED: ESMOLOL IV SCH (03:36)
[2020-10-17] MEDS ORDERED: SODIUM CHLORIDE 0.9% IV SCH (03:36)
[2020-10-17] MEDS ORDERED: Potassium Chloride Riders 40 MEQ in Premix Bag 1 BAG IV ONE (05:03)
[2020-10-17] MEDS ORDERED: Potassium Chloride 10% 20 MEQ/15 ML Soln 30 ML UD Cup PO ONE (08:30)
[2020-10-17] MEDS: Metoprolol Tartrate 50 MG Tab PO SCH ×2 (08:31→20:38)
[2020-10-17] MEDS ORDERED: Enoxaparin 30 MG/0.3 ML Syringe SUBCUT SCH (09:00)
--- NOTE | 2020-10-17 09:46 | PCM.PN ---
- General Info Date of Service: 10/17/20 Admission Dx/Problem (Free Text): Admission Diagnosis/Problem Admission Diagnosis/Problem Stroke of unknown etiology Subjective Update: Patient seen at bedside, resting comfortably, no distress, making brief eye contact Functional Status: Reports: Tolerating Diet, Urinating. Denies: Ambulating - Review of Systems General: Reports: Weakness. Denies: Fever, Fatigue Pulmonary: Denies: Shortness of Breath, Pleuritic Chest Pain Cardiovascular: Denies: Chest Pain, Palpitations Gastrointestinal: Denies: Abdominal Pain, Constipation, Decreased Appetite Genitourinary: Denies: Dysuria, Frequency, Burning Musculoskeletal: Denies: Neck Pain, Shoulder Pain, Arm Pain Skin: Denies: Cyanosis, Jaundice, Mottled - Patient Data Vitals - Most Recent: Last Vital Signs Temp 36.5 C 10/17/20 08:00 Pulse 85 10/17/20 08:31 Resp 21 H 10/17/20 08:00 BP 159/75 H 10/17/20 08:31 Pulse Ox 96 10/17/20 08:00 Weight - Most Recent: 75.296 kg I&O - Last 24 Hours: Intake & Output 10/16/20 10/17/20 10/17/20 22:59 06:59 14:59 Intake Total 0 Output Total 0 Balance 0 Lab Results Last 24 Hours: Laboratory Results - last 24 hr 10/16/20 10/16/20 10/16/20 Range/Units 05:20 12:22 19:14 WBC (4.0-11.0) K/uL RBC (4.30-5.90) M/uL Hgb (12.0-16.0) g/dL Hct (36.0-46.0) % MCV (80.0-98.0) fL MCH (27.0-32.0) pg MCHC (31.0-37.0) g/dL RDW Std Deviation (28.0-62.0) fl RDW Coeff of Shanae (11.0-15.0) % Plt Count (150-400) K/uL MPV (7.40-12.00) fL Neut % (Auto) (48.0-80.0) % Lymph % (Auto) (16.0-40.0) % [place] % (Auto) (0.0-15.0) % Eos % (Auto) (0.0-7.0) % Baso % (Auto) (0.0-1.5) % Neut # (Auto) (1.4-5.7) K/uL Lymph # (Auto) (0.6-2.4) K/uL [place] # (Auto) (0.0-0.8) K/uL Eos # (Auto) (0.0-0.7) K/uL Baso # (Auto) (0.0-0.1) K/uL Nucleated RBC % /100WBC Nucleated RBCs # K/uL Sodium (136-145) mmol/L Potassium (3.5-5.1) mmol/L Chloride (98-107) mmol/L Carbon Dioxide (21.0-32.0) mmol/L BUN (7.0-18.0) mg/dL Creatinine (0.6-1.0) mg/dL Est Cr Clr Drug Dosing mL/min Estimated GFR (MDRD) ml/min Glucose (74-106) mg/dL POC Glucose 105 H 125 H (70-99) mg/dL Calcium (8.5-10.1) mg/dL Magnesium 2.3 (1.8-2.4) mg/dL 10/16/20 10/17/20 10/17/20 Range/Units 22:24 01:31 01:31 WBC 9.55 (4.0-11.0) K/uL RBC 4.25 L (4.30-5.90) M/uL Hgb 12.8 (12.0-16.0) g/dL Hct 40.0 (36.0-46.0) % MCV 94.1 (80.0-98.0) fL MCH 30.1 (27.0-32.0) pg MCHC 32.0 (31.0-37.0) g/dL RDW Std Deviation 46.2 (28.0-62.0) fl RDW Coeff of Shanae 14 (11.0-15.0) % Plt Count 205 (150-400) K/uL MPV 11.70 (7.40-12.00) fL Neut % (Auto) 45.1 L (48.0-80.0) % Lymph % (Auto) 39.1 (16.0-40.0) % [place] % (Auto) 13.4 (0.0-15.0) % Eos % (Auto) 2.0 (0.0-7.0) % Baso % (Auto) 0.4 (0.0-1.5) % Neut # (Auto) 4.3 (1.4-5.7) K/uL Lymph # (Auto) 3.7 H (0.6-2.4) K/uL [place] # (Auto) 1.3 H (0.0-0.8) K/uL Eos # (Auto) 0.2 (0.0-0.7) K/uL Baso # (Auto) 0.0 (0.0-0.1) K/uL Nucleated RBC % 0.0 /100WBC Nucleated RBCs # 0 K/uL Sodium 149 H (136-145) mmol/L Potassium 3.4 L (3.5-5.1) mmol/L Chloride 112 H (98-107) mmol/L Carbon Dioxide 24.1 (21.0-32.0) mmol/L BUN 25 H (7.0-18.0) mg/dL Creatinine 1.0 (0.6-1.0) mg/dL Est Cr Clr Drug Dosing 27.93 mL/min Estimated GFR (MDRD) 52.3 ml/min Glucose 135 H (74-106) mg/dL POC Glucose 120 H (70-99) mg/dL Calcium 8.0 L (8.5-10.1) mg/dL Magnesium 2.0 (1.8-2.4) mg/dL Joseph Results Last 24 Hours: Microbiology 10/14/20 18:19 Aerobic Blood Culture - Preliminary Blood - Venous NO GROWTH AFTER 2 DAYS Anaerobic Blood Culture - Final 10/14/20 17:03 Urine Culture - Final Urine, Catheterized Proteus Mirabilis Normal Urogenital Bessie Med Orders - Current: Current Medications Acetaminophen (Acetaminophen 325 Mg Supp) 325 mg RECTAL Q4H PRN PRN Reason: Pain Last Admin: 10/16/20 02:41 Dose: 325 mg Documented by: Amiodarone HCl (Amiodarone 200 Mg Tab) 200 mg PO DAILY [facility] Apixaban (Apixaban 2.5 Mg Tab) 2.5 mg PO BID [facility] Ceftriaxone Sodium/Dextrose 1 (gm/ Premix) 50 mls @ 100 mls/hr IV Q24H [facility] Last Admin: 10/16/20 20:17 Dose: 100 mls/hr Documented by: Amiodarone HCl/Dextrose (Nexterone In Dextrose 360 Mg/200 Ml) 360 mg in 200 mls @ 33.333 mls/hr IV ASDIRECTED ALON; Protocol Last Infusion: 10/17/20 08:21 Dose: 0.5 mg/min, 16.667 mls/hr Documented by: Metoprolol Tartrate (Metoprolol Tartrate 50 Mg Tab) 100 mg PO BID [facility] Last Admin: 10/17/20 08:31 Dose: 100 mg Documented by: Nystatin (Nystatin Topical Powder 15 Gm Bottle) 0 gm TOP QID PRN PRN Reason: rashes/redness Last Admin: 10/16/20 13:47 Dose: 1 applic Documented by: Simvastatin (Simvastatin 40 Mg Tab) 40 mg PO BEDTIME [facility] Last Admin: 10/16/20 20:20 Dose: 40 mg Documented by: Sodium Chloride (Sodium Chloride 0.9% 10 Ml Syringe) 10 ml FLUSH ASDIRECTED PRN PRN Reason: Keep Vein Open Sodium Chloride (Sodium Chloride 0.9% 2.5 Ml Syringe) 2.5 ml FLUSH ASDIRECTED PRN PRN Reason: Keep Vein Open Sodium Chloride (Sodium Chloride 0.9% 10 Ml Sdv) 10 ml IV ASDIRECTED PRN PRN Reason: IV Use Discontinued Medications Diltiazem HCl (Diltiazem 25 Mg/5 Ml Sdv) Confirm Administered Dose 25 mg .ROUTE .STK-MED ONE Stop: 10/16/20 21:29 Last Admin: 10/16/20 21:30 Dose: 25 mg Documented by: Diltiazem HCl (Diltiazem 25 Mg/5 Ml Sdv) 20 mg IVPUSH STAT ONE Stop: 10/16/20 21:32 Last Admin: 10/16/20 21:46 Dose: 20 mg Documented by: Enoxaparin Sodium (Enoxaparin 30 Mg/0.3 Ml Syringe) 30 mg SUBCUT Q12HR [facility] Last Admin: 10/17/20 08:20 Dose: 30 mg Documented by: Heparin Sodium (Porcine) (Heparin Sodium 5,000 Units/Ml Vial) 5,000 units MOORE BCUT Q8H [facility] Last Admin: 10/16/20 18:47 Dose: 5,000 units Documented by: Ceftriaxone Sodium/Dextrose 1 (gm/ Premix) 50 mls @ 100 mls/hr IV ONETIME ONE Stop: 10/14/20 18:14 Last Admin: 10/14/20 18:38 Dose: 100 mls/hr Documented by: Sodium Chloride (Normal Saline) 1,000 mls @ 75 mls/hr IV CONTINUOUS ONE Stop: 10/15/20 22:32 Last Admin: 10/15/20 09:35 Dose: 75 mls/hr Documented by: Diltiazem HCl 100 mg/ Sodium (Chloride) 100 mls @ 5 mls/hr IV NOW ALON; Protocol Last Titration: 10/17/20 01:32 Dose: 15 mg/hr, 15 mls/hr Documented by: Amiodarone HCl/Dextrose (Nexterone In Dextrose 150 Mg/100 Ml) Confirm Administered Dose 100 mls @ as directed IV .STK-MED ONE Stop: 10/17/20 01:50 Last Admin: 10/17/20 01:57 Dose: Not Given Documented by: Amiodarone HCl/Dextrose 150 mg (/ Premix) 100 mls @ 400 mls/hr IV NOW ONE; Protocol Stop: 10/17/20 02:07 Last Admin: 10/17/20 02:05 Dose: 400 mls/hr Documented by: Esmolol HCl 2,500 mg/ Sodium (Chloride) 500 mls @ 45.178 mls/hr IV TITRATE ALON; Protocol Esmolol HCl 2,500 mg/ Sodium (Chloride) 250 mls @ 22.589 mls/hr IV TITRATE ALON; Protocol Lorazepam (Lorazepam 2 Mg/Ml Sdv) 0.25 mg IVPUSH ONETIME ONE Stop: 10/15/20 13:04 Last Admin: 10/15/20 13:24 Dose: Not Given Documented by: Potassium Chloride (Potassium Chloride 10% 20 Meq/15 Ml Soln 30 Ml Ud Cup) 40 meq PO ONETIME ONE Stop: 10/17/20 08:31 Last Admin: 10/17/20 08:35 Dose: 40 meq Documented by: Tramadol HCl (Tramadol 50 Mg Tab) 50 mg PO QID ALON Last Admin: 10/15/20 06:39 Dose: Not Given Documented by: Tramadol HCl (Tramadol 50 Mg Tab) 50 mg PO Q6H PRN PRN Reason: Pain - Exam Quality Assessment: Supplemental Oxygen General: No Acute Distress, Lethargic. No: Alert, Oriented Neck: Supple, Trachea Midline Lungs: Clear to Auscultation, Normal Respiratory Effort Cardiovascular: Regular Rate, Irregular Rhythm GI/Abdominal Exam: Normal Bowel Sounds, Soft, Non-Tender Extremities: Normal Inspection, Normal Range of Motion - Patient Data Lab Results Last 24 hrs: Laboratory Results - last 24 hr 10/16/20 10/16/20 10/16/20 Range/Units 05:20 12:22 19:14 WBC (4.0-11.0) K/uL RBC (4.30-5.90) M/uL Hgb (12.0-16.0) g/dL Hct (36.0-46.0) % MCV (80.0-98.0) fL MCH (27.0-32.0) pg MCHC (31.0-37.0) g/dL RDW Std Deviation (28.0-62.0) fl RDW Coeff of Shanae (11.0-15.0) % Plt Count (150-400) K/uL MPV (7.40-12.00) fL Neut % (Auto) (48.0-80.0) % Lymph % (Auto) (16.0-40.0) % [place] % (Auto) (0.0-15.0) % Eos % (Auto) (0.0-7.0) % Baso % (Auto) (0.0-1.5) % Neut # (Auto) (1.4-5.7) K/uL Lymph # (Auto) (0.6-2.4) K/uL [place] # (Auto) (0.0-0.8) K/uL Eos # (Auto) (0.0-0.7) K/uL Baso # (Auto) (0.0-0.1) K/uL Nucleated RBC % /100WBC Nucleated RBCs # K/uL Sodium (136-145) mmol/L Potassium (3.5-5.1) mmol/L Chloride (98-107) mmol/L Carbon Dioxide (21.0-32.0) mmol/L BUN (7.0-18.0) mg/dL Creatinine (0.6-1.0) mg/dL Est Cr Clr Drug Dosing mL/min Estimated GFR (MDRD) ml/min Glucose (74-106) mg/dL POC Glucose 105 H 125 H (70-99) mg/dL Calcium (8.5-10.1) mg/dL Magnesium 2.3 (1.8-2.4) mg/dL 10/16/20 10/17/20 10/17/20 Range/Units 22:24 01:31 01:31 WBC 9.55 (4.0-11.0) K/uL RBC 4.25 L (4.30-5.90) M/uL Hgb 12.8 (12.0-16.0) g/dL Hct 40.0 (36.0-46.0) % MCV 94.1 (80.0-98.0) fL MCH 30.1 (27.0-32.0) pg MCHC 32.0 (31.0-37.0) g/dL RDW Std Deviation 46.2 (28.0-62.0) fl RDW Coeff of Shanae 14 (11.0-15.0) % Plt Count 205 (150-400) K/uL MPV 11.70 (7.40-12.00) fL Neut % (Auto) 45.1 L (48.0-80.0) % Lymph % (Auto) 39.1 (16.0-40.0) % [place] % (Auto) 13.4 (0.0-15.0) % Eos % (Auto) 2.0 (0.0-7.0) % Baso % (Auto) 0.4 (0.0-1.5) % Neut # (Auto) 4.3 (1.4-5.7) K/uL Lymph # (Auto) 3.7 H (0.6-2.4) K/uL [place] # (Auto) 1.3 H (0.0-0.8) K/uL Eos # (Auto) 0.2 (0.0-0.7) K/uL Baso # (Auto) 0.0 (0.0-0.1) K/uL Nucleated RBC % 0.0 /100WBC Nucleated RBCs # 0 K/uL Sodium 149 H (136-145) mmol/L Potassium 3.4 L (3.5-5.1) mmol/L Chloride 112 H (98-107) mmol/L Carbon Dioxide 24.1 (21.0-32.0) mmol/L BUN 25 H (7.0-18.0) mg/dL Creatinine 1.0 (0.6-1.0) mg/dL Est Cr Clr Drug Dosing 27.93 mL/min Estimated GFR (MDRD) 52.3 ml/min Glucose 135 H (74-106) mg/dL POC Glucose 120 H (70-99) mg/dL Calcium 8.0 L (8.5-10.1) mg/dL Magnesium 2.0 (1.8-2.4) mg/dL Result Diagrams: 10/17/20 01:31 10/17/20 01:31 Joseph Results Last 24 hrs: Microbiology 10/14/20 18:19 Aerobic Blood Culture - Preliminary Blood - Venous NO GROWTH AFTER 2 DAYS Anaerobic Blood Culture - Final 10/14/20 17:03 Urine Culture - Final Urine, Catheterized Proteus Mirabilis Normal Urogenital Bessie Sepsis Event Note - Evaluation Sepsis Screening Result: No Definite Risk - Focused Exam Vital Signs: Vital Signs Temp Pulse Pulse Resp BP BP Pulse Ox 10/17/20 08:31 85 159/75 H 10/17/20 08:00 36.5 C 91 21 H 170/66 H 96 10/17/20 06:54 94 22 H 150/69 H 95 10/17/20 06:00 106 H 17 136/58 L 95 10/17/20 05:00 88 20 106/46 L 95 10/17/20 04:00 36.7 C 90 20 96/48 L 95 10/17/20 03:00 151 H 20 129/79 97 10/17/20 02:00 136 H 20 93/50 L 95 10/17/20 01:00 134 H 30 H 107/66 94 L 10/17/20 00:00 36.7 C 131 H 30 H 122/97 H 98 10/16/20 21:50 136 H - Problem List Review Problem List Initiated/Reviewed/Updated: Yes - My Orders Last 24 Hours: My Active Orders 10/16/20 22:19 Transfer Patient (Change bed) [ADT] Routine 10/17/20 09:00 Metoprolol Tartrate [Lopressor] 100 mg PO BID 10/17/20 09:45 Amiodarone [Cordarone] 200 mg PO DAILY 10/17/20 21:00 Apixaban [Eliquis] 2.5 mg PO BID - Plan Plan:: Assessment: 1. Afib RVR 2. Slurred speech/weakness possibly secondary to TIA versus stroke 3 Urinary tract infection secondary to proteus mirabilis 4 Acute kidney injury:improving 5. Past medical history: Hypertension, hypercholesterolemia, dementia, hearing impairment Plan 1.Afib RVR: patient switched for amiodarone gtt from [facility], now in NSR, rate controlled suyapa wean off the gtt and start on oral amiodarone and resume metoprolol start Apixaban 2.5 BID for anticoagulation 2. Slurred speech/weakness with concerns for TIA stroke: CT head negative for a ny acute processes. MRI without contrast: No evidence of acute ischemia or acute/chronic intracran ial blood products. no acute findings; moderate burden of chronic microvascular ischemic changes within the supratentorial white matter and brainstem. Tiny chronic lacunar infarct left superior basal ganglia Moderate generalized parenchymal volume loss 3UA positive for nitrites/leukocyte esterase.: proteus mirabilis; sensitive to Augmentin; 8 days abx sent to pharmacy continue CTX pt tolerating home thickened nektar feedings; pt. will be continued on this during hospitilization, Would like to see pt tolerate more PO and have BM prior to discharge. . Chest x-ray: Lungs low in volume however clear. Large hiatal hernia. Borderline cardiomegaly COVID negative 4. Acute kidney injury: resume IV NS 75 cc/hr till po intake is adequate; continue; RADHA resolved 5. Hypertension: resume metoprolol 6. Past medical history: Hypercholesterolemia: Restart simvastatin. Discussed w. family/DPOA regarding goals of care; in agreement to keep patient comfortable w.o any aggressive measures/treatment. Will make note of this but family will also make NH aware of these wishes as well.
[2020-10-17] MEDS: Amiodarone 200 MG Tab PO SCH (10:33)
[2020-10-17] MEDS: Lactated Ringers 1,000 ML IV SCH (12:02)
[2020-10-17] MEDS: Nystatin Topical Powder 15 GM Bottle TOP PRN ×2 (16:18→20:38)
[2020-10-17] MEDS: Apixaban 2.5 MG Tab PO SCH (20:31)
[2020-10-17] MEDS: cefTRIAXone 1 GM in Premix Bag 1 BAG IV SCH (20:31)
[2020-10-17] MEDS: Simvastatin 40 MG Tab PO SCH (20:31)
--- NOTE | 2020-10-18 00:19 | PCM.SN.2 ---
- Free Text/Narrative Note: Had a conversation with the family at bedside, they expressed that they want lean more towards palliative care for the patient rather than aggressive care. They do not want patient to be admitted to the hospital for unnecessary procedures. Would consult palliative services so that patients can explore that option further.
[2020-10-18] MEDS: Lactated Ringers 1,000 ML IV SCH (00:46)
[2020-10-18 06:18] LABS: CARBON DIOXIDE,CO2 27.3 mmol/L (21.0-32.0); POTASSIUM,K 3.6 mmol/L (3.5-5.1)
[2020-10-18] MEDS: Metoprolol Tartrate 50 MG Tab PO SCH (09:07)
[2020-10-18] MEDS: Amiodarone 200 MG Tab PO SCH (09:08)
[2020-10-18] MEDS: Apixaban 2.5 MG Tab PO SCH (09:08)
[2020-10-18] MEDS: Phosphorus #1 250 MG Tab PO SCH ×2 (09:51→13:00)
--- NOTE | 2020-10-18 11:14 | PCM.DCSUM1 ---
<Garrett Garcia - Last Filed: 10/18/20 15:15> Discharge Summary - Hospital Course Free Text/Narrative:: Patient is a 89-year-old female resident at [facility] presenting secondary to weakness of her right upper /lower extremity accompanied with slurring of her speech. 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 Per EMS notes/POA patient does ambulate with walker at the alf and is able to feed for herself as well. For the past 48 hours patient has been having increased weakness in her right side with increased slurring of her speech; per ER note it is unsure why patient was not brought to the ED sooner. ED course: Initially weakness was noted in the right upper and lower extremity however there was difficulty in completing a full/thorough neuro examination secondary to patient's dementia/inability to follow commands appropriately. CBC/CMP within normal limits. CT of head did not reveal any acute bleed/infarct however there is a possibility of an old infarct in the past. BP initially was 174/121 on arrival to via EMS but subsequently improved without any interventions. After CT scan patient was able to move her right upper and lower extremities without significant difficulties; however this was achieved by having the daughter direct the patient to do these things. ER note suggests it is unclear whether this was because of not initially understanding commands or spontaneous resolution of symptoms. Hospital course: Throughout stay patient was treated for UTI with ceftriaxone while cultures are pending. MRI ordered did not show any acute infarct/intracranial pathology however did suggest moderate burden of chronic lacunar infarcts. Patient was otherwise stable and labs were unremarkable However over the weekend patient did develop A. fib with RVR requiring transfer to ICU Patient throughout her stay had maintained her baseline and was continue to be treated for a UTI with ceftriaxone. Patient had a MRI which showed a moderate burden of chronic tiny lacunar infarcts/no acute intracranial pathology including intracranial hemorrhage. Following day patient did develop an episode of A. fib with RVR requiring admission to the ICU. Patient was transferred to ICU and placed on a Cardizem drip; subsequently switched over to p.o. amiodarone. Patient was ultimately rate controlled and had resumed metoprolol. Metoprolol was initially held secondary to permissive hypertension in light of a possible stroke. Eliquis was started at 2.5 mg twice daily. Discussed care with designated POA, Nieves/adelaida; is agreeable with palliative consult. Palliative/hospice consult placed and patient was ultimately discharged the following day in stable condition. Patient will be continued on 5 additional days of Augmentin in light of her urine cultures which grew proteus mirabilius . Patient does have a scheduled follow-up in the following week with her primary care. Patient was discharged in stable condition; day of discharge patient was downgraded to [facility]. pt was comfortable and in no acute distress. Discharge: Stable Disposition: Long-term alf facility. Follow-up: PCP within 1 week. - Discharge Data Discharge Date: 10/18/20 Discharge Disposition: DC/Tfer to [place] [id number] Condition: Good - Referral to Home Health Primary Care Physician: PCP None - Discharge Diagnosis/Problem(s) (1) UTI (urinary tract infection) SNOMED Code(s): 10958903 ICD Code: N39.0 - URINARY TRACT INFECTION, SITE NOT SPECIFIED Status: Acute (2) Slurred speech SNOMED Code(s): 217697778 ICD Code: R47.81 - SLURRED SPEECH Status: Acute (3) Weakness SNOMED Code(s): 29912167 ICD Code: R53.1 - WEAKNESS Status: Acute - Patient Summary/Data Consults: Consultations 10/15/20 09:38 Consult to Physical Therapy [PT Evaluation and Treatment] [CONS] Routine 10/17/20 23:58 Consult to Hospice [CONS] Routine - Patient Instructions Diet: Usual Diet as Tolerated (Necktar thick ) Notify Provider of: Fever - Discharge Plan Prescriptions/Med Rec: Amoxicillin/Clavulanate K [Augmentin 875-125 MG] 1 tab PO BID 8 Days #16 tablet Amiodarone [Cordarone] 200 mg PO DAILY 14 Days #14 tablet Apixaban [Eliquis] 2.5 mg PO BID 14 Days #28 tablet Home Medications: Home Meds traMADol HCl [Tramadol HCl] 50 mg PO Q6H PRN 05/19/18 [History] Acetaminophen [Tylenol] 325 mg PO QID 10/14/20 [History] Bisacodyl [Laxative Suppository] 1 dose .XX ASDIRECTED 10/14/20 [History] Calcium Carb, Citrate/Vit D3 [Citracal + D ER] 1 tab PO DAILY 10/14/20 [History] Docusate Sodium [Colace] 1 cap PO BID 10/14/20 [History] Magnesium Hydroxide [Milk of Magnesia] 30 ml PO ASDIRECTED PRN 10/14/20 [History] Metoprolol Tartrate [Lopressor] 100 mg PO BID 10/14/20 [History] Simvastatin 40 mg PO BEDTIME 10/14/20 [History] polyethylene glycoL 3350 [MiraLAX] 17 gm PO DAILY 10/14/20 [History] traMADol [Ultram] 50 mg PO QID 10/14/20 [History] Amoxicillin/Clavulanate K [Augmentin 875-125 MG] 1 tab PO BID 8 Days #16 tablet 10/16/20 [Rx] Nystatin [Nystop] 0 gm TOP QID PRN bottle 10/16/20 [Rx] Amiodarone [Cordarone] 200 mg PO DAILY 14 Days #14 tablet 10/18/20 [Rx] Apixaban [Eliquis] 2.5 mg PO BID 14 Days #28 tablet 10/18/20 [Rx] Oxygen Therapy Mode: Room Air Forms: ED Department Discharge Referrals: Boone Mckeon MD [Ordering Only Provider] - ([facility] rounds) - Discharge Summary/Plan Comment DC Time >30 min.: No - Patient Data Vitals - Most Recent: Last Vital Signs Temp 97.9 F 10/18/20 07:47 Pulse 76 10/18/20 09:07 Resp 24 H 10/18/20 09:09 BP 126/56 L 10/18/20 09:09 Pulse Ox 95 10/18/20 09:09 Weight - Most Recent: 75.296 kg I&O - Last 24 hours: Intake & Output 10/17/20 10/18/20 10/18/20 22:59 06:59 14:59 Intake Total 668 987 Output Total 2 Balance 668 985 Lab Results - Last 24 hrs: Laboratory Results - last 24 hr 10/17/20 10/17/20 10/17/20 Range/Units 12:10 17:48 20:46 WBC (4.0-11.0) K/uL RBC (4.30-5.90) M/uL Hgb (12.0-16.0) g/dL Hct (36.0-46.0) % MCV (80.0-98.0) fL MCH (27.0-32.0) pg MCHC (31.0-37.0) g/dL RDW Std Deviation (28.0-62.0) fl RDW Coeff of Shanae (11.0-15.0) % Plt Count (150-400) K/uL MPV (7.40-12.00) fL Neut % (Auto) (48.0-80.0) % Lymph % (Auto) (16.0-40.0) % [place] % (Auto) (0.0-15.0) % Eos % (Auto) (0.0-7.0) % Baso % (Auto) (0.0-1.5) % Neut # (Auto) (1.4-5.7) K/uL Lymph # (Auto) (0.6-2.4) K/uL [place] # (Auto) (0.0-0.8) K/uL Eos # (Auto) (0.0-0.7) K/uL Baso # (Auto) (0.0-0.1) K/uL Nucleated RBC % /100WBC Nucleated RBCs # K/uL Sodium (136-145) mmol/L Potassium (3.5-5.1) mmol/L Chloride (98-107) mmol/L Carbon Dioxide (21.0-32.0) mmol/L BUN (7.0-18.0) mg/dL Creatinine (0.6-1.0) mg/dL Est Cr Clr Drug Dosing mL/min Estimated GFR (MDRD) ml/min Glucose (74-106) mg/dL POC Glucose 138 H 104 H 119 H (70-99) mg/dL Calcium (8.5-10.1) mg/dL Phosphorus (2.6-4.7) mg/dL Magnesium (1.8-2.4) mg/dL 10/18/20 10/18/20 Range/Units 05:05 05:05 WBC 6.35 (4.0-11.0) K/uL RBC 3.96 L (4.30-5.90) M/uL Hgb 12.0 (12.0-16.0) g/dL Hct 38.0 (36.0-46.0) % MCV 96.0 (80.0-98.0) fL MCH 30.3 (27.0-32.0) pg MCHC 31.6 (31.0-37.0) g/dL RDW Std Deviation 47.2 (28.0-62.0) fl RDW Coeff of Shanae 14 (11.0-15.0) % Plt Count 192 (150-400) K/uL MPV 12.00 (7.40-12.00) fL Neut % (Auto) 34.3 L (48.0-80.0) % Lymph % (Auto) 42.2 H (16.0-40.0) % [place] % (Auto) 15.6 H (0.0-15.0) % Eos % (Auto) 7.4 H (0.0-7.0) % Baso % (Auto) 0.5 (0.0-1.5) % Neut # (Auto) 2.2 (1.4-5.7) K/uL Lymph # (Auto) 2.7 H (0.6-2.4) K/uL [place] # (Auto) 1.0 H (0.0-0.8) K/uL Eos # (Auto) 0.5 (0.0-0.7) K/uL Baso # (Auto) 0.0 (0.0-0.1) K/uL Nucleated RBC % 0.0 /100WBC Nucleated RBCs # 0 K/uL Sodium 148 H (136-145) mmol/L Potassium 3.6 (3.5-5.1) mmol/L Chloride 113 H (98-107) mmol/L Carbon Dioxide 27.3 (21.0-32.0) mmol/L BUN 18 (7.0-18.0) mg/dL Creatinine 0.9 (0.6-1.0) mg/dL Est Cr Clr Drug Dosing 31.04 mL/min Estimated GFR (MDRD) 59.1 ml/min Glucose 107 H (74-106) mg/dL POC Glucose (70-99) mg/dL Calcium 8.0 L (8.5-10.1) mg/dL Phosphorus 2.3 L (2.6-4.7) mg/dL Magnesium 1.8 (1.8-2.4) mg/dL DAVID Results - Last 24 hrs: Microbiology 10/14/20 18:19 Aerobic Blood Culture - Preliminary Blood - Venous NO GROWTH AFTER 3 DAYS Anaerobic Blood Culture - Final Med Orders - Current: Current Medications Acetaminophen (Acetaminophen 325 Mg Supp) 325 mg RECTAL Q4H PRN PRN Reason: Pain Last Admin: 10/16/20 02:41 Dose: 325 mg Documented by: Amiodarone HCl (Amiodarone 200 Mg Tab) 200 mg PO DAILY [facility] Last Admin: 10/18/20 09:08 Dose: 200 mg Documented by: Apixaban (Apixaban 2.5 Mg Tab) 2.5 mg PO BID [facility] Last Admin: 10/18/20 09:08 Dose: 2.5 mg Documented by: Ceftriaxone Sodium/Dextrose 1 (gm/ Premix) 50 mls @ 100 mls/hr IV Q24H [facility] Last Admin: 10/17/20 20:31 Dose: 100 mls/hr Documented by: Amiodarone HCl/Dextrose (Nexterone In Dextrose 360 Mg/200 Ml) 360 mg in 200 mls @ 33.333 mls/hr IV ASDIRECTED [facility]; Protocol Last Infusion: 10/17/20 08:21 Dose: 0.5 mg/min, 16.667 mls/hr Documented by: Lactated Ringer's (Ringers, Lactated) 1,000 mls @ 75 mls/hr IV Q13H [facility] Last Admin: 10/18/20 00:46 Dose: 75 mls/hr Documented by: Dextrose/Sodium Chloride (Dextrose 5%-1/2 Ns) 1,000 mls @ 75 mls/hr IV ASDIRECTED [facility] Metoprolol Tartrate (Metoprolol Tartrate 50 Mg Tab) 100 mg PO BID [facility] Last Admin: 10/18/20 09:07 Dose: 100 mg Documented by: Nystatin (Nystatin Topical Powder 15 Gm Bottle) 0 gm TOP QID PRN PRN Reason: rashes/redness Last Admin: 10/17/20 20:38 Dose: 1 applic Documented by: Simvastatin (Simvastatin 40 Mg Tab) 40 mg PO BEDTIME [facility] Last Admin: 10/17/20 20:31 Dose: 40 mg Documented by: Sodium Chloride (Sodium Chloride 0.9% 10 Ml Syringe) 10 ml FLUSH ASDIRECTED PRN PRN Reason: Keep Vein Open Sodium Chloride (Sodium Chloride 0.9% 2.5 Ml Syringe) 2.5 ml FLUSH ASDIRECTED PRN PRN Reason: Keep Vein Open Sodium Chloride (Sodium Chloride 0.9% 10 Ml Sdv) 10 ml IV ASDIRECTED PRN PRN Reason: IV Use Sodium Phosphate (Phosphorus #1 250 Mg Tab) 250 mg PO QID [facility] Last Admin: 10/18/20 09:51 Dose: 250 mg Documented by: Discontinued Medications Diltiazem HCl (Diltiazem 25 Mg/5 Ml Sdv) Confirm Administered Dose 25 mg .ROUTE .STK-MED ONE Stop: 10/16/20 21:29 Last Admin: 10/16/20 21:30 Dose: 25 mg Documented by: Diltiazem HCl (Diltiazem 25 Mg/5 Ml Sdv) 20 mg IVPUSH STAT ONE Stop: 10/16/20 21:32 Last Admin: 10/16/20 21:46 Dose: 20 mg Documented by: Enoxaparin Sodium (Enoxaparin 30 Mg/0.3 Ml Syringe) 30 mg SUBCUT Q12HR [facility] Last Admin: 10/17/20 08:20 Dose: 30 mg Documented by: Heparin Sodium (Porcine) (Heparin Sodium 5,000 Units/Ml Vial) 5,000 units SUBCUT Q8H [facility] Last Admin: 10/16/20 18:47 Dose: 5,000 units Documented by: Ceftriaxone Sodium/Dextrose 1 (gm/ Premix) 50 mls @ 100 mls/hr IV ONETIME ONE Stop: 10/14/20 18:14 Last Admin: 10/14/20 18:38 Dose: 100 mls/hr Documented by: Sodium Chloride (Normal Saline) 1,000 mls @ 75 mls/hr IV CONTINUOUS ONE Stop: 10/15/20 22:32 Last Admin: 10/15/20 09:35 Dose: 75 mls/hr Documented by: Diltiazem HCl 100 mg/ Sodium (Chloride) 100 mls @ 5 mls/hr IV NOW [facility]; Protocol Last Titration: 10/17/20 01:32 Dose: 15 mg/hr, 15 mls/hr Documented by: Amiodarone HCl/Dextrose (Nexterone In Dextrose 150 Mg/100 Ml) Confirm Administered Dose 100 mls @ as directed IV .STK-MED ONE Stop: 10/17/20 01:50 Last Admin: 10/17/20 01:57 Dose: Not Given Documented by: Amiodarone HCl/Dextrose 150 mg (/ Premix) 100 mls @ 400 mls/hr IV NOW ONE; Protocol Stop: 10/17/20 02:07 Last Admin: 10/17/20 02:05 Dose: 400 mls/hr Documented by: Esmolol HCl 2,500 mg/ Sodium (Chloride) 500 mls @ 45.178 mls/hr IV TITRATE [facility]; Protocol Esmolol HCl 2,500 mg/ Sodium (Chloride) 250 mls @ 22.589 mls/hr IV TITRATE [facility]; Protocol Lorazepam (Lorazepam 2 Mg/Ml Sdv) 0.25 mg IVPUSH ONETIME ONE Stop: 10/15/20 13:04 Last Admin: 10/15/20 13:24 Dose: Not Given Documented by: Potassium Chloride (Potassium Chloride 10% 20 Meq/15 Ml Soln 30 Ml Ud Cup) 40 meq PO ONETIME ONE Stop: 10/17/20 08:31 Last Admin: 10/17/20 08:35 Dose: 40 meq Documented by: Tramadol HCl (Tramadol 50 Mg Tab) 50 mg PO QID [facility]ON Last Admin: 10/15/20 06:39 Dose: Not Given Documented by: Tramadol HCl (Tramadol 50 Mg Tab) 50 mg PO Q6H PRN PRN Reason: Pain <Maikol,Hooria - Last Filed: 10/18/20 20:50> Discharge Summary - Hospital Course Free Text/Narrative:: ' I have seen and evaluated the patient. I have discussed findings and treatment plan with resident. I agree with the assessment and plan in the following note. - Referral to Home Health Primary Care Physician: PCP None - Patient Summary/Data Consults: Consultations 10/15/20 09:38 Consult to Physical Therapy [PT Evaluation and Treatment] [CONS] Routine 10/17/20 23:58 Consult to Hospice [CONS] Routine - Patient Data Vitals - Most Recent: Last Vital Signs Temp 36.5 C 10/18/20 12:42 Pulse 76 10/18/20 09:07 Resp 16 10/18/20 12:42 BP 142/70 H 10/18/20 12:42 Pulse Ox 95 10/18/20 12:42 I&O - Last 24 hours: Intake & Output 10/18/20 10/18/20 10/18/20 06:59 14:59 22:59 Intake Total 987 679 Output Total 2 Balance 985 679 Lab Results - Last 24 hrs: Laboratory Results - last 24 hr 10/17/20 10/18/20 10/18/20 Range/Units 20:46 05:05 05:05 WBC 6.35 (4.0-11.0) K/uL RBC 3.96 L (4.30-5.90) M/uL Hgb 12.0 (12.0-16.0) g/dL Hct 38.0 (36.0-46.0) % MCV 96.0 (80.0-98.0) fL MCH 30.3 (27.0-32.0) pg MCHC 31.6 (31.0-37.0) g/dL RDW Std Deviation 47.2 (28.0-62.0) fl RDW Coeff of Shanae 14 (11.0-15.0) % Plt Count 192 (150-400) K/uL MPV 12.00 (7.40-12.00) fL Neut % (Auto) 34.3 L (48.0-80.0) % Lymph % (Auto) 42.2 H (16.0-40.0) % [place] % (Auto) 15.6 H (0.0-15.0) % Eos % (Auto) 7.4 H (0.0-7.0) % Baso % (Auto) 0.5 (0.0-1.5) % Neut # (Auto) 2.2 (1.4-5.7) K/uL Lymph # (Auto) 2.7 H (0.6-2.4) K/uL [place] # (Auto) 1.0 H (0.0-0.8) K/uL Eos # (Auto) 0.5 (0.0-0.7) K/uL Baso # (Auto) 0.0 (0.0-0.1) K/uL Nucleated RBC % 0.0 /100WBC Nucleated RBCs # 0 K/uL Sodium 148 H (136-145) mmol/L Potassium 3.6 (3.5-5.1) mmol/L Chloride 113 H (98-107) mmol/L Carbon Dioxide 27.3 (21.0-32.0) mmol/L BUN 18 (7.0-18.0) mg/dL Creatinine 0.9 (0.6-1.0) mg/dL Est Cr Clr Drug Dosing 31.04 mL/min Estimated GFR (MDRD) 59.1 ml/min Glucose 107 H (74-106) mg/dL POC Glucose 119 H (70-99) mg/dL Calcium 8.0 L (8.5-10.1) mg/dL Phosphorus 2.3 L (2.6-4.7) mg/dL Magnesium 1.8 (1.8-2.4) mg/dL SARS-CoV-2 RNA (ESPERANZA) (NEGATIVE) 10/18/20 Range/Units 11:45 WBC (4.0-11.0) K/uL RBC (4.30-5.90) M/uL Hgb (12.0-16.0) g/dL Hct (36.0-46.0) % MCV (80.0-98.0) fL MCH (27.0-32.0) pg MCHC (31.0-37.0) g/dL RDW Std Deviation (28.0-62.0) fl RDW Coeff of Shanae (11.0-15.0) % Plt Count (150-400) K/uL MPV (7.40-12.00) fL Neut % (Auto) (48.0-80.0) % Lymph % (Auto) (16.0-40.0) % [place] % (Auto) (0.0-15.0) % Eos % (Auto) (0.0-7.0) % Baso % (Auto) (0.0-1.5) % Neut # (Auto) (1.4-5.7) K/uL Lymph # (Auto) (0.6-2.4) K/uL [place] # (Auto) (0.0-0.8) K/uL Eos # (Auto) (0.0-0.7) K/uL Baso # (Auto) (0.0-0.1) K/uL Nucleated RBC % /100WBC Nucleated RBCs # K/uL Sodium (136-145) mmol/L Potassium (3.5-5.1) mmol/L Chloride (98-107) mmol/L Carbon Dioxide (21.0-32.0) mmol/L BUN (7.0-18.0) mg/dL Creatinine (0.6-1.0) mg/dL Est Cr Clr Drug Dosing mL/min Estimated GFR (MDRD) ml/min Glucose (74-106) mg/dL POC Glucose (70-99) mg/dL Calcium (8.5-10.1) mg/dL Phosphorus (2.6-4.7) mg/dL Magnesium (1.8-2.4) mg/dL SARS-CoV-2 RNA (ESPERANZA) NEGATIVE (NEGATIVE) DAVID Results - Last 24 hrs: Microbiology 10/14/20 18:19 Aerobic Blood Culture - Preliminary Blood - Venous NO GROWTH AFTER 4 DAYS Anaerobic Blood Culture - Final Med Orders - Current: Current Medications Discontinued Medications Acetaminophen (Acetaminophen 325 Mg Supp) 325 mg RECTAL Q4H PRN PRN Reason: Pain Last Admin: 10/16/20 02:41 Dose: 325 mg Documented by: Amiodarone HCl (Amiodarone 200 Mg Tab) 200 mg PO DAILY [facility] Last Admin: 10/18/20 09:08 Dose: 200 mg Documented by: Apixaban (Apixaban 2.5 Mg Tab) 2.5 mg PO BID [facility] Last Admin: 10/18/20 09:08 Dose: 2.5 mg Documented by: Diltiazem HCl (Diltiazem 25 Mg/5 Ml Sdv) Confirm Administered Dose 25 mg .ROUTE .STK-MED ONE Stop: 10/16/20 21:29 Last Admin: 10/16/20 21:30 Dose: 25 mg Documented by: Diltiazem HCl (Diltiazem 25 Mg/5 Ml Sdv) 20 mg IVPUSH STAT ONE Stop: 10/16/20 21:32 Last Admin: 10/16/20 21:46 Dose: 20 mg Documented by: Enoxaparin Sodium (Enoxaparin 30 Mg/0.3 Ml Syringe) 30 mg SUBCUT Q12HR [facility] Last Admin: 10/17/20 08:20 Dose: 30 mg Documented by: Heparin Sodium (Porcine) (Heparin Sodium 5,000 Units/Ml Vial) 5,000 units SUBCUT Q8H [facility] Last Admin: 10/16/20 18:47 Dose: 5,000 units Documented by: Ceftriaxone Sodium/Dextrose 1 (gm/ Premix) 50 mls @ 100 mls/hr IV ONETIME ONE Stop: 10/14/20 18:14 Last Admin: 10/14/20 18:38 Dose: 100 mls/hr Documented by: Ceftriaxone Sodium/Dextrose 1 (gm/ Premix) 50 mls @ 100 mls/hr IV Q24H [facility] Last Admin: 10/17/20 20:31 Dose: 100 mls/hr Documented by: Sodium Chloride (Normal Saline) 1,000 mls @ 75 mls/hr IV CONTINUOUS ONE Stop: 10/15/20 22:32 Last Admin: 10/15/20 09:35 Dose: 75 mls/hr Documented by: Diltiazem HCl 100 mg/ Sodium (Chloride) 100 mls @ 5 mls/hr IV NOW [facility]; Protocol Last Titration: 10/17/20 01:32 Dose: 15 mg/hr, 15 mls/hr Documented by: Amiodarone HCl/Dextrose (Nexterone In Dextrose 360 Mg/200 Ml) 360 mg in 200 mls @ 33.333 mls/hr IV ASDIRECTED [facility]; Protocol Last Infusion: 10/17/20 08:21 Dose: 0.5 mg/min, 16.667 mls/hr Documented by: Amiodarone HCl/Dextrose (Nexterone In Dextrose 150 Mg/100 Ml) Confirm Administered Dose 100 mls @ as directed IV .STK-MED ONE Stop: 10/17/20 01:50 Last Admin: 10/17/20 01:57 Dose: Not Given Documented by: Amiodarone HCl/Dextrose 150 mg (/ Premix) 100 mls @ 400 mls/hr IV NOW ONE; Protocol Stop: 10/17/20 02:07 Last Admin: 10/17/20 02:05 Dose: 400 mls/hr Documented by: Esmolol HCl 2,500 mg/ Sodium (Chloride) 500 mls @ 45.178 mls/hr IV TITRATE [facility]; Protocol Esmolol HCl 2,500 mg/ Sodium (Chloride) 250 mls @ 22.589 mls/hr IV TITRATE [facility]; Protocol Lactated Ringer's (Ringers, Lactated) 1,000 mls @ 75 mls/hr IV Q13H [facility] Last Admin: 10/18/20 00:46 Dose: 75 mls/hr Documented by: Dextrose/Sodium Chloride (Dextrose 5%-1/2 Ns) 1,000 mls @ 75 mls/hr IV ASDIRECTED [facility] Last Admin: 10/18/20 11:28 Dose: 75 mls/hr Documented by: Lorazepam (Lorazepam 2 Mg/Ml Sdv) 0.25 mg IVPUSH ONETIME ONE Stop: 10/15/20 13:04 Last Admin: 10/15/20 13:24 Dose: Not Given Documented by: Metoprolol Tartrate (Metoprolol Tartrate 50 Mg Tab) 100 mg PO BID [facility] Last Admin: 10/18/20 09:07 Dose: 100 mg Documented by: Nystatin (Nystatin Topical Powder 15 Gm Bottle) 0 gm TOP QID PRN PRN Reason: rashes/redness Last Admin: 10/17/20 20:38 Dose: 1 applic Documented by: Potassium Chloride (Potassium Chloride 10% 20 Meq/15 Ml Soln 30 Ml Ud Cup) 40 meq PO ONETIME ONE Stop: 10/17/20 08:31 Last Admin: 10/17/20 08:35 Dose: 40 meq Documented by: Simvastatin (Simvastatin 40 Mg Tab) 40 mg PO BEDTIME [facility] Last Admin: 10/17/20 20:31 Dose: 40 mg Documented by: Sodium Chloride (Sodium Chloride 0.9% 10 Ml Syringe) 10 ml FLUSH ASDIRECTED PRN PRN Reason: Keep Vein Open Sodium Chloride (Sodium Chloride 0.9% 2.5 Ml Syringe) 2.5 ml FLUSH ASDIRECTED PRN PRN Reason: Keep Vein Open Sodium Chloride (Sodium Chloride 0.9% 10 Ml Sdv) 10 ml IV ASDIRECTED PRN PRN Reason: IV Use Sodium Phosphate (Phosphorus #1 250 Mg Tab) 250 mg PO QID [facility] Last Admin: 10/18/20 13:00 Dose: 250 mg Documented by: Tramadol HCl (Tramadol 50 Mg Tab) 50 mg PO QID [facility] Last Admin: 10/15/20 06:39 Dose: Not Given Documented by: Tramadol HCl (Tramadol 50 Mg Tab) 50 mg PO Q6H PRN PRN Reason: Pain
[2020-10-18] MEDS ORDERED: Dextrose 5%-0.45% NaCl 1,000 ML IV SCH (11:15)
== END 2020-10-18 13:45 ==
LOC: MW.ED 14:29 → MW.MS 16:25 → UNDOADMOB 16:28 → INTOOBSV 10-16 23:30 → OBSVTOIN 10-16 23:30 → MW.ICU 10-16 23:31
PROVIDERS: ADMIT Internal Medicine; ATTEND Internal Medicine
DX: R47.81 Slurred speech (principal); R53.1 Weakness; N17.9 Acute kidney failure, unspecified; N39.0 Urinary tract infection, site not specified; I48.91 Unspecified atrial fibrillation; G30.9 Alzheimer's disease, unspecified; F02.80 Dementia in other diseases classified elsewhere, unspecified severity, without behavioral disturbance, psychotic disturbance, mood disturbance, and anxiety; E78.00 Pure hypercholesterolemia, unspecified; I10 Essential (primary) hypertension; Z20.828 Contact with and (suspected) exposure to other viral communicable diseases; Z79.899 Other long term (current) drug therapy
CPT/HCPCS: 36415; 70450; 70551; 71045; 80048; 80053; 80061; 81001; 82947; 83605; 83735; 84100; 84443; 84484; 85025; 85610; 85730; 87040; 87086; 87088; 87186; 93005; 97162; 99285; A9270; J0282; J0696; J1644; J1650; J3490; J7030; J7042; J7120; U0002; 36410; 96365; 96366; 96367; 96372; 96374; 96376; 99284; G0378; J3480